=== PATIENT | female | born 1935 | race Caucasian/White ===

== ENCOUNTER 2018-07-17 14:38 | Emergency (ER) | payer OTHER ==
[~2018-07-17] VITALS: Ht 160 cm; Wt 63.5 kg
[~2018-07-17 14:38] MED LIST: B12INJ; CIPRO250 M1; EFFEXOR75 MG PO; FLOXIN OTI0.3 %/5 M1 OT; LEVOXYL75 MCG PO; LISINOPRIL10 MG PO; MAGNESIUM250 M1 PO; MIRALAX17 GM PO; NABUMETONE 500500 M2 PO; OCUVITE TABLET1 EAC1; PACERONE 200 M200 M1 PO; TRAZODONE HCL50 MG PO; VITAMIN D400 UNIT PO; ZYRTEC10 M2 PO
[2018-07-17 17:09] LABS: ABSOLUTE NEUTROPHILS 7.5 thou/uL (1.4-8.2); BASOPHILS 0.2 % (0.0-2.0); EOSINOPHILS 0.6 % (0.0-3.0); HEMATOCRIT 33.5 % (37.0-47.0); HEMOGLOBIN 11.2 gm/dL (12.0-15.0); MCH 30.1 pg (26.0-34.0); MCHC 33.3 g/dL (28.0-37.0); MCV 90.3 fL (80.0-100.0); PLATELET COUNT 375 thou/uL (150-400); POLYS 88.2 % (36.0-66.0); RBC 3.71 mil/uL (4.20-5.00); WBC 8.6 thou/uL (4.0-11.0)
[2018-07-17 17:25] LABS: CALCIUM 9.4 mg/dL (8.5-10.1); CREATININE 0.7 mg/dL (0.6-1.0); POTASSIUM 3.7 mmol/L (3.5-5.1)
[2018-07-17 18:24] LABS: URINE BILIRUBIN NEGATIVE (Negative); URINE BLOOD 1+ (Negative); URINE COLOR YELLOW; URINE GLUCOSE-RANDOM* NEGATIVE (Negative); URINE KETONES 2+ (Negative); URINE PROTEIN (DIPSTICK) NEGATIVE (Negative); URINE SPECIFIC GRAVITY 1.025 (1.005-1.035); URINE UROBILINOGEN 0.2 E.U./dl (0.2-1.0)
[2018-07-17 18:25] LABS: URINE CLARITY SL HAZY; URINE LEUKOCYTES-REFLEX 2+ (Negative); URINE NITRITE-REFLEX POSITIVE (Negative)
[2018-07-17] MEDS ORDERED: KEFLEX500 M1 PO (18:33)
[2018-07-17 18:34] LABS: BACTERIA-REFLEX >30 Many /HPF (None Seen); CASTS None Seen /LPF (None Seen); CRYSTALS None Seen /LPF (None Seen); MUCUS >6 Heavy strn/LPF (None Seen); SQUAMOUS 4-10 Moderate /LPF (0-3); URINE RBC 0-2 Rare /HPF (0-2); URINE WBC-REFLEX >25 Many /HPF (0-5)
[2018-07-17 18:35] LABS: WBC CLUMPS Few (None Seen)
[2018-07-17 19:38] VITALS: BP 136/77
== END 2018-07-17 19:38 | disposition home or self-care (01) ==
LOC: ER 14:38
PROVIDERS: Emergency Medicine
DX: S32.512A Fracture of superior rim of left pubis, initial encounter for closed fracture (principal); N39.0 Urinary tract infection, site not specified; I10 Essential (primary) hypertension; E03.9 Hypothyroidism, unspecified; I48.91 Unspecified atrial fibrillation; F32.9 Major depressive disorder, single episode, unspecified; F41.9 Anxiety disorder, unspecified; X58.XXXA Exposure to other specified factors, initial encounter; Y93.89 Activity, other specified; Y92.89 Other specified places as the place of occurrence of the external cause; Y99.8 Other external cause status

== ENCOUNTER → 2018-07-27 | Outpatient (CLI) | payer OTHER ==
[~2018-07-27] VITALS: Ht 162.6 cm; Wt 63.5 kg
[~2018-07-27] MED LIST changes: +ASPERCREME1 EACH TOP; +BETAMETHASONE V15 GM TOP; +CENTRUM SILVER1 EAC4 PO; +CITRACAL PLUS1 EAC1 PO; +EFFEXOR XR75 MG PO; -EFFEXOR75 MG PO; +FLECAINIDE ACET50 M1 PO; +IBUPROFEN 200200 M1 PO; +KEFLEX500 M1 PO; +LOSARTAN POTASS50 MG PO; +MAGNESIUM CITR100 GM PO; +MEDROL4 MG PO; +MEDROLDOSEPACK PO; +NABUMETONE 500500 M1 PO; +OMEGA 3 FISH O1 EACH PO; +PERCOCET 5-3251 EACH PO; +PRESERVISION T1 EACH PO; +TRAMADOL 50 MG50 MG PO; +TYLENOL EXTRA500 MG PO; +VITAMIN B-12500 MCG PO
--- NOTE | ~2018-07-27 | HPC ---
[facility] [address] [place] [address] PAIN MANAGEMENT CONSULTATION Name: CORNELL MYERS Room #: REG [facility] Jonn.#: [id number] Admission: 07/27/18 ������������������ Attend Phys: Lora Lopez MD Discharge: ������������������ Date of : 31 Report #: [id number] THIS REPORT FOR: //name// CC: Iban Lopez DATE OF SERVICE: 07/27/2018 CHIEF COMPLAINT: Back pain that radiates down into the legs. It has been more intense over the last month. I had years of chronic back pain. HISTORY OF PRESENT ILLNESS: The patient is an 83-year-old female who has been referred to the Pain Clinic for evaluation. The patient has noted worsening of her pain over the last few months. She rates it as a 10/10. Feels that it is crushing and that the medications that she has used in the past, have not been very effective. She is not aware of anything at this juncture that alleviates her suffering. She has been taking care of her . He was in incapacitated. As a result of him needing a walker. She would move this in and out of her car. Since she has been doing that activity and other activities to support him, she has noticed an increase in pain and discomfort in her back. She has used hydrocodone. She does not feel that the level of medication that she is receiving at that point was very helpful. She denies any significant change in her bowel or bladder function. She was not having significant problems with the hydrocodone from a narcotic standpoint. She feels that her is doing better now and that his hip is improving. He had fallen and ____ fractured his hip. The patient states that her family member is a physician. She has not had physical therapy. She has used a TENS unit. Feels that this "has been one of her best friends." Ambulation is the most problematic activity. ALLERGIES: No known drug allergies. CURRENT MEDICATIONS: Vitamin D3, vitamin D4 b.i.d., MiraLax 17 grams, levothyroxine 75 mcg, lisinopril 10 mg, vitamin A, C, E (Ocuvite tablet), Effexor 75 mg, magnesium 250 mg, amiodarone 200 mg, trazodone 50 mg. PAST MEDICAL HISTORY: Atrial fibrillation, hypertension, hypothyroidism, depression, anxiety, and chronic back pain. PAST SURGICAL HISTORY: 1. Colostomy. 2. Reversal of colostomy. 3. Bilateral knees. 4. Cholecystectomy. REVIEW OF SYSTEMS: Generally good health. [address] [address] PAIN MANAGEMENT CONSULTATION Name: CORNELL MYERS Room #: REG [facility].#: [id number] Admission: 07/27/18 ������������������ Attend Phys: Lora Lopez MD Discharge: ������������������ Date of : 33 Report #: [id number] LABORATORY DATA: CT without contrast dated 07/17/2018 revealed evaluation of the bony pelvis was performed. The iliac crests are intact. The sacral ala intact. There is a healing fracture of the left superior pubic ramus. There appears to be some developing calculus formation. The right superior pubic ramus is intact. The inferior pubic rami is intact bilaterally. The femoral heads are centered within the acetabulum. The joint spaces are maintained. The liver appears enlarged extending into the pelvis. There are changes of prior hernia repair. Two views of the lumbar spine dated 07/17/2018: 1. There is significant degeneration of the disks at L2-L3 and L3-L4 where there is a focal scoliosis. No spondylolisthesis is identified. No definite fracture is seen. IMPRESSION: Significant degenerative disk disease at L2-L3 and L3-L4 associated with focal scoliosis. No definitive fractures are seen. PAIN CLINIC ASSESSMENT/PQRS: 1. History of osteoarthritis. The patient has some arthritic changes. She has not been treated for rheumatoid arthritis. 2. Height 5 feet 4 inches, weight 140 pounds, BMI is 24.0. 3. Vital Signs: Blood pressure 151/86, pulse 76, respiratory rate 16, room air saturation 99%. 4. Pain intensity, 10/10. 5. Fall risk. The patient has not fallen in the last 3 months. 6. Blood thinner. The patient is not on a blood thinning medication. 7. Hypertension. The patient is not being treated for hypertension. 8. 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 9. Blood thinner. The patient is not on a blood thinning medication. 10. Hypertension. The patient is not being treated for hypertension. 11. Opioids greater than 6 weeks. 12. Risk assessment tool, low for opioid use. 13. Functional assessment tool, 42/70. 14. Recreational drug use. The patient denies use of recreational drugs. 15. Tobacco: The patient denies use of tobacco. 16. Alcohol: The patient denies use of alcoholic beverages. PHYSICAL EXAMINATION: GENERAL: The patient is a well-developed white female, appears her stated age. She is alert and oriented x 3. Affect is appropriate. Speech is fluent. HEENT: Normocephalic, atraumatic. Extraocular eye muscles, the patient is wearing glasses. HEART: Regular rate today. LUNGS: Clear to auscultation. ABDOMEN: Nontender. EXTREMITIES: Upper extremity muscle strength is judged to be 4/5 for the major [facility] [place] [address] [place] [address] PAIN MANAGEMENT CONSULTATION Name: CORNELL MYERS Room #: REG [facility].#: [id number] Admission: 07/27/18 ������������������ Attend Phys: Lora Lopez MD Discharge: ������������������ Date of : 33 Report #: [id number] muscle groups. The patient with history of scoliosis. Has pain and discomfort, which is radiating down into the back. IMPRESSION: 1. Clinical findings consistent with spinal stenosis and neurogenic claudication. All other items above. 2. Atrial fibrillation. 3. Hypertension. 4. Hypothyroid disease. 5. Macular degeneration. 6. Irritable bowel syndrome. 7. Generalized osteoarthritis involving multiple sites. RECOMMENDATIONS: We have discussed some options with the patient. At this juncture, I think a conservative approach would be the most beneficial. The patient feels that her pain continues to be problematic. We will try a regimen of oxycodone 5 mg 1 p.o. t.i.d. and notes the patient's efficacy. Again, we have discussed the problems with opioid medications. These probably associated with narcotics, especially in elderly people. The other option is that of an injection. At this juncture, I think to try the oxycodone 1 mg p.o. t.i.d. would be reasonable. We will also have the patient try a Medrol Dosepak at this juncture as well. She will call us in the near future. Hopefully, her pain will continue to improve as her convalescence improves. We would like to thank you for letting us participate in her care. We hope she continues to improve. ��������������������������������������������� ���������������������������������������� By: ��������������������������������������������� [id number] Lora Lopez MD /nt
[2018-07-27 09:34] VITALS: BP 151/86
--- NOTE | 2018-07-27 09:37 | NUR ---
Pain Clinic Assessment: 1. History of Osteoarthritis: History of Rheumatoid Arthritis: 2. Height: 5 ft. 4 in. 162.6 cm. Weight: 140.0 lb. oz. 63.504 kg. Patient's BMI: 24.0 3. Vital Signs: BP: 151/86 Pulse: 72 Resp: 16 Temp: 02 Sat: 99 ECG Mon: 4. Pain Intensity: 10 5. Fall Risk: Dizziness: N Needs help standing or walking: N Fallen in the last 3 months: N Fall risk comments: 6. Patient on Blood Thinner: None 7. History of Hypertension: N 8. Opioid Therapy greater than 6 weeks: Opiate Contract Signed: 9. Risk Assessment Tool Provided: LOW 10. Functional Assessment Tool: 11. Recreational Drug Use: Never Drug Type: Tobacco Use: Never Smoker Tobacco Type: Amount or Packs/day: How Many Years: Alcohol Use: No Frequency: Quant:
== END ==
LOC: PAIN 06:48
DX: M51.36 Other intervertebral disc degeneration, lumbar region (principal); M41.86 Other forms of scoliosis, lumbar region; M19.90 Unspecified osteoarthritis, unspecified site; I48.91 Unspecified atrial fibrillation; I10 Essential (primary) hypertension; E03.9 Hypothyroidism, unspecified; K58.9 Irritable bowel syndrome, unspecified; H35.30 Unspecified macular degeneration

== ENCOUNTER → 2018-08-03 | Outpatient (CLI) | payer OTHER ==
[~2018-08-03] VITALS: Ht 162.6 cm; Wt 60.5 kg
[2018-08-03 10:21] VITALS: BP 132/74
--- NOTE | 2018-08-03 10:38 | NUR ---
Pain Clinic Assessment: 1. History of Osteoarthritis: History of Rheumatoid Arthritis: 2. Height: 5 ft. 4 in. 162.6 cm. Weight: 133.4 lb. oz. 60.510 kg. Patient's BMI: 22.9 3. Vital Signs: BP: 132/74 Pulse: 78 Resp: 20 Temp: 02 Sat: 100 ECG Mon: 4. Pain Intensity: 10 5. Fall Risk: Dizziness: N Needs help standing or walking: Y Fallen in the last 3 months: N Fall risk comments: 6. Patient on Blood Thinner: None 7. History of Hypertension: N 8. Opioid Therapy greater than 6 weeks: N Opiate Contract Signed: 08/03/18 9. Risk Assessment Tool Provided: LOW 10. Functional Assessment Tool: 11. Recreational Drug Use: Never Drug Type: Tobacco Use: Never Smoker Tobacco Type: Amount or Packs/day: How Many Years: Alcohol Use: No Frequency: Quant:
--- NOTE | 2018-08-05 08:00 | HPC ---
[facility] [address] [place] [address] PAIN MANAGEMENT CONSULTATION Name: LUCIACORNELLRA WARREN Room #: REG [facility] M.R.#: [id number] Admission: 08/03/18 ������������������ Attend Phys: Funmilayo Scanlon Discharge: ������������������ Date of : 33 Report #: [id number] THIS REPORT FOR: //name// [facility] DATE OF SERVICE: 08/03/2018 CHIEF COMPLAINT: Lower back pain. HISTORY OF PRESENT ILLNESS: This is an 83-year-old female who returned to the pain clinic today thinking that she was going to get an epidural, since she tells me that her Medrol Dosepak that Dr. Lopez gave her on 07/27/2018 did not help and she tells me her pain is a 10/10. She tells me that it occasionally radiates into her legs, but today is just across her lumbar spine, axial back pain that radiates into her hips. Nothing is relieving her pain, but then later she does tell me that she has a TENS unit on that has been very beneficial as well as some Lidocaine patches that she has been taking [id number]. She also takes Tylenol and ibuprofen at home. She has taken a few of the oxycodone that Dr. Lopez did prescribe her, but feels that they are not helpful. She just would like an injection today and says it is an emergency. ALLERGIES: No known drug allergies. CURRENT LIST OF MEDICATIONS: Oxycodone 5/325 p.r.n., lidocaine patches, Tylenol Extra Strength 3 times a day, tramadol as needed, ibuprofen 400 mg 3 times a day, losartan 50 mg daily, magnesium powder daily, vitamin B12, PreserVision, fish oil, Citracal, Centrum Silver, MiraLax, vitamin D, flecainide 50 mg b.i.d., Effexor 75 mg b.i.d. and Levoxyl 88 mcg daily. PQRS: 1. She has a history of osteoarthritis and some arthritic changes in her back. She denies any rheumatoid arthritis. 2. Height is 5 feet 4 inches, weight is 133 and BMI is 22.9. 3. Vital signs 132/74, pulse is 78, respirations 20 and oxygen sat is 100. 4. Pain score is 10/10. 5. Denies dizziness. Does use a walker and has not fallen in the last 3 months. 6. The patient is not on any blood thinners and is not being treated for hypertension. 7. Opioid therapy is greater than 6 weeks. We signed an opioid signed contract today. Her risk assessment tool is low. Functional assessment is 42/70. 8. The patient does not use recreational drugs, is not a smoker and does not drink alcohol. We did check the prescription monitoring system. The patient has filled the [address] [address] PAIN MANAGEMENT CONSULTATION Name: CORNELL MYERS KELVIN Room #: REG [facility].#: [id number] Admission: 08/03/18 ������������������ Attend Phys: Funmilayo Scanlon Discharge: ������������������ Date of : 33 Report #: [id number] that Dr. Lopez just gave her last week and tramadol in the past. PHYSICAL EXAMINATION: GENERAL: The patient is a well-developed white female, 83 years old. She appears her stated age. She is alert; orientated at times, though she does confuse things quite frequently. NEUROLOGIC: Her affect is appropriate and her speech is fluent. HEENT: Normocephalic, atraumatic. Extraocular eye muscles are intact. She is wearing glasses. Her mucous membranes are moist. EXTREMITIES: Upper extremity strength judged to be 4/5 for her major muscle groups. The patient has a history of scoliosis. Lower extremity strength judged to be 4/5 in all major muscle groups. Pain is across the lumbar spine, radiating into her bilateral hips today, but not past her hips. She does walk with a slightly antalgic gait. IMPRESSION: 1. Spinal stenosis and neurogenic claudication. 2. Atrial fibrillation. 3. Macular degeneration. 4. Generalized osteoarthritis. 5. Management of high-risk medications and her terms of written opioid agreement. We reviewed the fact that opiate medications are being used to provide analgesia adequate to support activities of daily living, not attempting to achieve a specific pain score on the 0-10 Visual Analog Scale. The current opiate medications are providing sufficient analgesia to allow the patient to participate in activities of daily living. The patient is not exhibiting any aberrant behavior suggestive of drug diversion. The patient is not having any adverse reactions to medications. The patient is not suffering from daytime somnolence or mental acuity changes. The patient is managing opiate-induced constipation with appropriate [id number] agents and dietary considerations. The patient was counseled on concern for caution with operating a motor vehicle while using opiate medications. A physical exam was performed and the patient's functional status was evaluated. All patients with back pain were advised against the bed rest greater than 4 days and were advised to return to normal activities. Pain score assessment was noted and the treatment plan was reviewed with the patient. All current medications, both prescribed and OTC were reviewed and reconciled on the electronic medical record. Tobacco screening was accomplished and smoking cessation was advised when indicated. BMI was noted and diet/exercise modification was recommended for all patients following outside normal parameters. I reviewed with the patient today [facility] [place] [place] [address] PAIN MANAGEMENT CONSULTATION Name: LUCIACORNELL WARREN Room #: REG CL M.R.#: [id number] Admission: 08/03/18 ������������������ Attend Phys: Funmilayo MELANIA Scanlon Discharge: ������������������ Date of : 33 Report #: [id number] prescription medications, reviewed their responsibility to utilize medications only as prescribed by the physician. They are to seek and receive pain medications only from 1 physician group ( [facility]). They are to use 1 pharmacy and keep the clinic informed if they change pharmacies. Their responsibilities include making followup visits in a timely fashion and to avoid abrupt discontinuation of medication usage. Their responsibilities further include bringing their medications (bottles from the pharmacy with residual pills) to the visit for possible confirmation of pill counts and the patient understands it is their responsibility to submit to random drug screens to ensure both that the medications prescribed are present, and that no other controlled substances are present. All prescriptions provided today were generated electronically. PLAN: 1. We discussed treatment options with the patient today. The patient thought she was coming in for an injection today. I explained to her that her doctor is on vacation. He had given her Medrol Dosepak to try. The patient tells me that was ineffective. She just took her last dose yesterday of the "six pack", as she is calling it. I explained that some of that medicine will still be in her system. We will make an appointment for a lumbar epidural steroid injection from Dr. Mario Lopez for his return. In the meantime, we decided on the treatment plan. 2. The patient is to continue her TENS unit and her Lidoderm patches. 3. The patient is to stop her tramadol and just take her oxycodone. She is able to take this 3 times a day. I reminded her of constipation that may become problematic with taking opioids and she will take her MiraLax on a daily basis. 4. I discussed this case with Dr. John Velasquez, who was here today and we decided to give her some nabumetone, which is a stronger anti-inflammatory and to not take any further ibuprofen or Motrin. 5. We did discuss all of this in great depth with the patient and explained to her that she needs to safeguard her opioids and to take her prescriptions straight to the Pharmacy since she has misplaced her last prescription that we wrote her last week. I did call the Pharmacy and they do not have it. The patient tells me she threw away her discharge papers when she got home, so we are afraid that she did throw this prescription away. 6. Appointment made for 08/17/2018 for a lumbar epidural steroid injection by Dr. Lopez. If pain gets worse then she was instructed to go to the ER. Care today given with collaboration with Dr John Velasquez. ��������������������������������������������� <ELECTRONICALLY SIGNED> ���������������������������������������� By: Funmilayo Scanlon ��������������������������������������������� 08/05/18 [id number] Funmilayo Scanlon /nt
== END ==
LOC: PAIN 06:47
DX: M48.062 Spinal stenosis, lumbar region with neurogenic claudication (principal); I48.91 Unspecified atrial fibrillation; M19.90 Unspecified osteoarthritis, unspecified site; Z79.899 Other long term (current) drug therapy

== ENCOUNTER → 2018-08-17 | Outpatient (CLI) | payer OTHER ==
[~2018-08-17] VITALS: Ht 162.6 cm; Wt 62.1 kg
[2018-08-17 10:55] VITALS: BP 138/85
--- NOTE | 2018-08-17 11:14 | NUR ---
Pain Clinic Assessment: 1. History of Osteoarthritis: SPINE History of Rheumatoid Arthritis: DENIES 2. Height: 5 ft. 4 in. 162.6 cm. Weight: 136.8 lb. oz. 62.052 kg. Patient's BMI: 23.5 3. Vital Signs: BP: 138/85 Pulse: 78 Resp: 16 Temp: 02 Sat: 97 ECG Mon: 4. Pain Intensity: 10 5. Fall Risk: Dizziness: N Needs help standing or walking: Y Fallen in the last 3 months: N Fall risk comments: 6. Patient on Blood Thinner: None 7. History of Hypertension: N 8. Opioid Therapy greater than 6 weeks: N Opiate Contract Signed: 08/03/18 9. Risk Assessment Tool Provided: LOW 10. Functional Assessment Tool: 11. Recreational Drug Use: Never Drug Type: Tobacco Use: Never Smoker Tobacco Type: Amount or Packs/day: How Many Years: Alcohol Use: No Frequency: Quant:
== END | disposition home or self-care (01) ==
LOC: PAIN 06:53
DX: M54.16 Radiculopathy, lumbar region (principal); G89.29 Other chronic pain

== ENCOUNTER → 2018-08-31 | Outpatient (CLI) | payer OTHER ==
[~2018-08-31] VITALS: Ht 165.1 cm; Wt 60.3 kg
[2018-08-31 12:46] VITALS: BP 113/75
--- NOTE | 2018-08-31 12:51 | NUR ---
Pain Clinic Assessment: 1. History of Osteoarthritis: SPINE History of Rheumatoid Arthritis: DENIES 2. Height: 5 ft. 5 in. 165.1 cm. Weight: 133.0 lb. oz. 60.328 kg. Patient's BMI: 22.1 3. Vital Signs: BP: 113/75 Pulse: 82 Resp: 16 Temp: 02 Sat: 99 ECG Mon: 4. Pain Intensity: 8 5. Fall Risk: Dizziness: N Needs help standing or walking: N Fallen in the last 3 months: N Fall risk comments: 6. Patient on Blood Thinner: None 7. History of Hypertension: N 8. Opioid Therapy greater than 6 weeks: N Opiate Contract Signed: 08/03/18 9. Risk Assessment Tool Provided: LOW 10. Functional Assessment Tool: 11. Recreational Drug Use: Never Drug Type: Tobacco Use: Never Smoker Tobacco Type: Amount or Packs/day: How Many Years: Alcohol Use: No Frequency: Quant:
--- NOTE | 2018-09-01 10:19 | HPC ---
[facility] [place] [address] [address] PAIN MANAGEMENT CONSULTATION Name: IOANAMARIA ISABELCORNELL Room #: REG [facility] M..#: [id number] Admission: 08/31/18 ������������������ Attend Phys: Funmilayo Scanlon Discharge: ������������������ Date of : 33 Report #: [id number] THIS REPORT FOR: //name// CC: Funmilayo Rosadosmith [facility] DATE OF SERVICE: 08/31/2018 CHIEF COMPLAINT: Axial back pain and left hip pain. HISTORY OF PRESENT ILLNESS: This is an 83-year-old female who returns to the pain clinic today for refill of medications. She tells me that she does not have any further prescriptions except the one that she received on 07/27/2018. The patient had returned to a visit on 08/03/2018 because she had lost the prescription from 07/27/2018 and now, she has lost her second prescription. She brings back with her pill bottle filled on 07/27/2018 from [facility] for #30 pills. We have notified the [facility]. They do not have any further prescriptions for this patient. She is unsure where they are. The patient tells me that her epidural that she received a couple of weeks ago did not help very much. She first tells me that it did not help at all, but then, she tells me that her leg pain is better since the epidural and is requesting a second injection. She tells me that she continues to have low back pain, but that the leg is much improved. It is a constant, sharp pain. Her pain level is an 8 today because she is out of her pain pills. ALLERGIES: No known drug allergies. CURRENT LIST OF MEDICATIONS: Oxycodone 5/325, nabumetone 500 three times a day, losartan daily, betamethasone cream, magnesium, vitamin B12, PreserVision, fish oil, Tambocor, Citracal, Centrum Silver, Desyrel 50 mg at bedtime, MiraLax, vitamin D, Effexor 75 mg b.i.d. and Levoxyl 88 mcg daily. PQRS: 1. She has a history of osteoarthritis in her spine. Denies any rheumatoid arthritis. 2. Height is 5 feet 5 inches, weight is 133, BMI is 22. 3. Vital signs: Blood pressure 113/75, pulse is 82, respirations 16, oxygen sat is 99%. Pain score is 8/10. 4. Denies dizziness. She does not need help walking or standing. She has not fallen in the last 3 months. 5. The patient is not on any blood thinners and does not take medication for hypertension. 6. Opioid therapy is greater than 6 weeks; therefore, an opioid signed contract is on the chart. Risk assessment tool is low. Functional assessment is 42/70. 7. Recreational drug use, she denies. She is not a smoker [place] [address] PAIN MANAGEMENT CONSULTATION Name: CORNELL MYERS Room #: REG JANETH Chisholm#: [id number] Admission: 08/31/18 ������������������ Attend Phys: Funmilayo Scanlon Discharge: ������������������ Date of : 33 Report #: [id number] alcohol. According to the prescription monitoring system, the patient has only filled 1 prescription from us on 07/27/2018 and has not filled any further narcotics since then. We will have her sign a contract and it is placed in her chart. PHYSICAL EXAMINATION: GENERAL: This is a well-developed, well-nourished white female who appears her stated age. She is alert and orientated, though forgetful in some of her history. Her affect is appropriate and her speech is fluent. HEENT: Normocephalic, atraumatic. Extraocular eye muscles are intact. The patient wears glasses. BACK: The patient has pain and discomfort in the lumbar portion of her back, axial back pain. Her pain does radiate into her left hip and thigh occasionally. IMPRESSION: 1. Lumbar radiculopathy, history of spinal stenosis and neurogenic claudication. 2. Atrial fibrillation. 3. Generalized osteoarthritis involving multiple joints. We reviewed the fact that opiate medications are being used to provide analgesia adequate to support activities of daily living, not attempting to achieve a specific pain score on the 0-10 Visual Analog Scale. The current opiate medications are providing sufficient analgesia to allow the patient to participate in activities of daily living. The patient is not exhibiting any aberrant behavior suggestive of drug diversion. The patient is not having any adverse reactions to medications. The patient is not suffering from daytime somnolence or mental acuity changes. The patient is managing opiate-induced constipation with appropriate [id number] agents and dietary considerations. The patient was counseled on concern for caution with operating a motor vehicle while using opiate medications. A physical exam was performed and the patient's functional status was evaluated. All patients with back pain were advised against the bed rest greater than 4 days and were advised to return to normal activities. Pain score assessment was noted and the treatment plan was reviewed with the patient. All current medications, both prescribed and OTC were reviewed and reconciled on the electronic medical record. Tobacco screening was accomplished and smoking cessation was advised when indicated. BMI was noted and diet/exercise modification was recommended for all patients following outside normal parameters. I reviewed with the patient today their responsibilities to safeguard prescription medications, reviewed their responsibility to utilize medications [address] [place] [address] PAIN MANAGEMENT CONSULTATION Name: LUCIACORNELL WARREN Room #: REG [facility] M.R.#: [id number] Admission: 08/31/18 ������������������ Attend Phys: Funmilayo Scanlon Discharge: ������������������ Date of : 33 Report #: [id number] only as prescribed by the physician. They are to seek and receive pain medications only from 1 physician group ( [facility]). They are to use 1 pharmacy and keep the clinic informed if they change pharmacies. Their responsibilities include making followup visits in a timely fashion and to avoid abrupt discontinuation of medication usage. Their responsibilities further include bringing their medications (bottles from the pharmacy with residual pills) to the visit for possible confirmation of pill counts and the patient understands it is their responsibility to submit to random drug screens to ensure both that the medications prescribed are present, and that no other controlled substances are present. All prescriptions provided today were generated electronically. PLAN: 1. We discussed treatment options with the patient today. The patient tells me that she needs a refill of her Percocet. I explained to her that when we saw her on 08/03/2018, we gave her a prescription due to the one she filled before. Normally, she needs a police report for lost or stolen prescriptions. I explained the severity of losing prescriptions that have her name and her doctor's name on there that could be filled by somebody else and somebody could potentially get these medications and something could happen to them. I explained to her that she could not lose any further prescriptions; therefore, it was decided today along with Dr. Mario Lopez who was discussed with. We will walk the patient to the pharmacy here in the hospital to fill her prescription, so she can take the medication home. The patient verbalizes understanding. 2. I encouraged the patient to take 2 tablets a day to see if this is beneficial in helping some of her pain. She verbalizes understanding. 3. The patient would like to have another epidural, at least try to see if this will be beneficial in relieving some of her pain. She feels that at first, the injection was not as beneficial as it could have been, but then realizes that her leg is better since the injection, but she would not give me a percentage of relief. Appointment made at the end of August, so it will be 1 month from her previous injection. 4. The patient denies any problems with constipation or overmedication. If the patient does take 2 Percocet pills a day as we are prescribing, her morphine milligram equivalent will be 15 per the CDC guidelines. Prescription given for Percocet #60 today. No additional prescription given. 5. Care provided with collaboration of Dr Lopez who did see the patient as well today. ��������������������������������������������� <ELECTRONICALLY SIGNED> ���������������������������������������� By: Funmilayo Scanlon ��������������������������������������������� 09/01/18 1019 1445 [id number] Funmilayo Scanlon /nt
== END ==
LOC: PAIN 07:04
DX: M54.16 Radiculopathy, lumbar region (principal); M19.90 Unspecified osteoarthritis, unspecified site; I48.91 Unspecified atrial fibrillation; I73.9 Peripheral vascular disease, unspecified; Z87.39 Personal history of other diseases of the musculoskeletal system and connective tissue

== ENCOUNTER → 2018-09-21 | Outpatient (CLI) | payer OTHER ==
[~2018-09-21] VITALS: Ht 165.1 cm; Wt 63.0 kg
[~2018-09-21] MED LIST changes: +PERCOCET PO
[2018-09-21 10:31] VITALS: BP 126/79
--- NOTE | 2018-09-21 10:37 | NUR ---
Pain Clinic Assessment: 1. History of Osteoarthritis: SPINE History of Rheumatoid Arthritis: DENIES 2. Height: 5 ft. 5 in. 165.1 cm. Weight: 139.0 lb. oz. 63.050 kg. Patient's BMI: 23.1 3. Vital Signs: BP: 126/79 Pulse: 74 Resp: 18 Temp: 02 Sat: 96 ECG Mon: 4. Pain Intensity: 6 5. Fall Risk: Dizziness: N Needs help standing or walking: Y Fallen in the last 3 months: N Fall risk comments: USES WALKER 6. Patient on Blood Thinner: None 7. History of Hypertension: N 8. Opioid Therapy greater than 6 weeks: N Opiate Contract Signed: 08/03/18 9. Risk Assessment Tool Provided: LOW 10. Functional Assessment Tool: 11. Recreational Drug Use: Never Drug Type: Tobacco Use: Never Smoker Tobacco Type: Amount or Packs/day: How Many Years: Alcohol Use: No Frequency: Quant:
--- NOTE | 2018-09-28 17:05 | HPC ---
[facility] [address] [place] [place] [address] PAIN MANAGEMENT CONSULTATION Name: CORNELL MYERS Room #: REG JANETH Silva.#: [id number] Admission: 09/21/18 ������������������ Attend Phys: Lora Lopez MD Discharge: ������������������ Date of : 33 Report #: [id number] THIS REPORT FOR: //name// CC: Nikko Lopez DATE OF SERVICE: 09/21/2018 CHIEF COMPLAINT: Low back and left hip pain. Pain radiates down to the left leg. HISTORY: The patient is an 83-year-old female who has been seen in the pain clinic because of lumbar radiculopathy. She has undergone an epidural steroid injection and gleaned some benefit from this. She returns today with the hopes of undergoing another epidural steroid injection. Her pain continues to be problematic and she rates it as a 6/10. Has pain that is radiating down into the lower portion of her back involving the left hip. Pain has been constant and problematic since she began taking care of her . Her fell, walking into a store on the rug. He then fractured his hip. He required use of a wheelchair. She continued to move the wheelchair and his walker from place to place and in and out of the car. Since that time, she has noticed an increase pain and discomfort. She does have some scoliosis in the upper portion of her back. Feels that this is the nidus of her pain event. ALLERGIES: No known drug allergies. CURRENT MEDICATIONS: Vitamin D3, vitamin D4 b.i.d., MiraLax 17 grams, levothyroxine 75 mcg, lisinopril 10 mg, vitamin A, vitamin C, vitamin E, Effexor 75 mg, magnesium 250 mg, amiodarone 200 mg, trazodone 50 mg. PAIN CLINIC ASSESSMENT/PQRS: 1. The patient has a history of osteoarthritis. She is not being treated for rheumatoid arthritis. 2. Height 5 feet 5 inches, weight 139 pounds, BMI is 23.1. 3. Vital signs: Blood pressure 126/79, pulse 74, respiratory rate 18, room air saturation 96%. 4. Pain intensity 08/01. 5. Fall history: The patient uses a walker to ambulate. She has not fallen in the last 3 months. 6. Blood thinner. The patient is not on a blood thinning medication. 7. Opioid therapy greater than 6 weeks. The patient is not on a chronic opioid regimen, but has received opioid through the pain clinic. 8. Risk assessment tool, low for opioid use. 9. Functional assessment tool 42/70. 10. Recreational drugs. The patient [place] [address] PAIN MANAGEMENT CONSULTATION Name: CORNELL MYERS Room #: REG CL Phan#: [id number] Admission: 09/21/18 ������������������ Attend Phys: Lora Lopez MD Discharge: ������������������ Date of : 33 Report #: [id number] 11. Tobacco: The patient has never smoked. 12. Alcohol: The patient denies use of alcoholic beverages. PHYSICAL EXAMINATION: GENERAL: The patient is a well-developed, well-nourished white female. Appears her stated age. She is alert and oriented x 3. Her affect is appropriate. Speech is fluent. HEENT: Normocephalic, atraumatic. Extraocular eye muscles intact. The patient is wearing glasses. HEART: Regular rate today. LUNGS: Clear to auscultation. ABDOMEN: Nontender. MUSCULOSKELETAL: The patient has pain in the back with some discomfort in the lower portion of her back. The patient has continued to use a corset for back support. Has some scoliotic curvature in the upper portion of her back. Has pain that is radiating down into her leg with numbness, tingling, and sensory changes in the L4-L5 area. IMPRESSION: 1. Lumbar radiculopathy with history of spinal stenosis and neurogenic claudication. 2. Atrial fibrillation. 3. Hypertension. 4. Hypothyroidism. 5. Macular degeneration. 6. Irritable bowel syndrome. 7. Generalized osteoarthritis involving multiple sites. RECOMMENDATIONS: We discussed treatment options with the patient. Risks and benefits of an epidural steroid injection were again discussed. Possible complications of the procedure, which could include but are not limited to infection, worsening pain, no improvement in pain, nerve damage, and the patient elects to proceed. PROCEDURE NOTE: The patient was taken to the procedure area. She was then assisted in getting on the examination table. Fluoroscopy using anterior, posterior as well as lateral viewing were implemented. A pillow was placed under the abdomen to bolster and improve positioning. Her back was sterilely prepped with a Betadine solution. A 0.25% bupivacaine was infiltrated at the L4-L5 interspace using a 25-gauge needle. This area was numbed. A 17-gauge Tuohy with loss of resistance technique was then used to gain access to the epidural space, aspiration was negative. A total of 80 mg Depo-Medrol, 40 mg triamcinolone, and 2 mL of 0.25% bupivacaine was injected. The patient tolerated the procedure well. There were no complications. She remained in the Pain Clinic for appropriate amount of time. She will follow up in the future as needed. We would like to thank you for letting us participate in her care. We [facility] [place] [address] [place] [address] PAIN MANAGEMENT CONSULTATION Name: IOANAMARIA ISABELCORNELLRA WARREN Room #: REG [facility] JonnR.#: [id number] Admission: 09/21/18 ������������������ Attend Phys: Lora Lopez MD Discharge: ������������������ Date of : 33 Report #: [id number] hope she continues to improve. The patient's pain decreased to 5 at the time of discharge. A total of 13 seconds of fluoro time was used. ��������������������������������������������� <ELECTRONICALLY SIGNED> ���������������������������������������� By: Lora Lopez MD ��������������������������������������������� 09/28/18 1705 1633 05 Lora Lopez MD /PMT
== END | disposition home or self-care (01) ==
LOC: PAIN 06:49
DX: M54.16 Radiculopathy, lumbar region (principal); G89.29 Other chronic pain; I10 Essential (primary) hypertension; E03.9 Hypothyroidism, unspecified; I48.91 Unspecified atrial fibrillation; M19.90 Unspecified osteoarthritis, unspecified site; Z79.899 Other long term (current) drug therapy; Z79.01 Long term (current) use of anticoagulants; Z87.440 Personal history of urinary (tract) infections

== ENCOUNTER → 2018-10-05 | Outpatient (CLI) | payer OTHER ==
[~2018-10-05] VITALS: Ht 165.1 cm; Wt 61.6 kg
[~2018-10-05] MED LIST changes: +MOBIC7.5 MG PO
--- NOTE | ~2018-10-05 | HPC ---
[facility] [address] [place] [address] PAIN MANAGEMENT CONSULTATION Name: CORNELL MYERS Room #: REG JANETH Phan#: [id number] Admission: 10/05/18 Attend Phys: Lora Lopez MD Discharge: Date of : 33 Report #: [id number] THIS REPORT FOR: //name// CC: Iban Lopez DATE OF SERVICE: 10/05/2018 CHIEF COMPLAINT: Here for medication renewal. HISTORY: The patient is an 83-year-old female, who has been seen in the pain clinic because of lumbar radiculopathy. Epidural steroid injections have been performed. The patient returns today indicating that her pain continues to be problematic. She rates it as a 6/10. She notes that there is pain that is radiating down in her low back and involving her left hip. She has been taking care of her , who fell on a rug. He fractured his hip. Moving him around as well as doing activities of daily living have exacerbated her pain and discomfort. She does have a history of scoliosis. She does use a back brace, but does not feel that this has been providing significant benefit. She has a little pain. She is limited in her ability to go out and interactive because of her pain. She is unable to interact with her friends to go to dinner, play bridge, and feels that pain continues to limit her activity. CURRENT MEDICATIONS: Vitamin D3, vitamin D4 b.i.d., MiraLax 17 grams, levothyroxine 70 mcg, lisinopril 10 mg, vitamin A, vitamin C, vitamin E, Effexor 75 mg, magnesium 250 mg, amiodarone 200 mg, and trazodone 50 mg. ALLERGIES: No known drug allergies. PAIN CLINIC ASSESSMENT AND PQRS: 1. The patient has a history of osteoarthritis. She is not being treated for rheumatoid arthritis. 2. Pain intensity /10. 3. Fall history. The patient is using a walker. 4. Blood thinner. The patient is not on a blood thinning medication. 5. Hypertension. The patient is not being treated for hypertension. 6. Opioids greater than 6 weeks. The patient receives her medication from her primary. 7. Risk assessment tool, low for opioid use. 8. Functional assessment tool, . 9. Recreational drug use. The patient denies use of recreational drugs. 10. Tobacco: The patient has never smoked. 11. Alcohol. The patient denies use of alcoholic beverages. PHYSICAL EXAMINATION: GENERAL: The patient is a well-developed, well-[place] [address] PAIN MANAGEMENT CONSULTATION Name: CORNELL MYERS [id number] Admission: 10/05/18 Attend Phys: Lora Lopez MD Discharge: Date of : 33 Report #: [id number] appears her stated age. She is alert and oriented x 3. Her affect is appropriate. Speech is fluent. Height is 5 feet 5 inches, weight is 135 pounds, and BMI is 22.6. VITAL SIGNS: Blood pressure is 122/73, pulse is 80, respiratory rate is 20, and room air saturation is 100%. HEENT: Normocephalic, atraumatic. Extraocular eye muscles intact. Sclerae nonicteric. Mucous membranes are moist. The patient is wearing glasses. HEART: Regular rate today. LUNGS: Clear to auscultation. ABDOMEN: Nontender. MUSCULOSKELETAL: The patient has pain in the back. She has some discomfort in lower portion of her back. The patient has a corset on for support. She has a scoliotic curve in the upper portion of her back, has experienced pain radiating down into the leg area with numbness and tingling and sensory changes at L4-L5. IMPRESSION: 1. History of lumbar radiculopathy and history of spinal stenosis and neurogenic claudication. 2. Atrial fibrillation. 3. Hypertension. 4. Hypothyroidism. 5. Macular degeneration. 6. Irritable bowel syndrome. 7. Generalized osteoarthritis involving multiple sites. RECOMMENDATIONS: We have discussed treatment options with the patient. At this juncture, I think she would benefit from evaluation for a back brace. We would have her wear the back brace with hopes of reducing the pain by restricting the mobility in her trunk. The patient may benefit from use of tramadol and possibly low dose opioid medications in the future. We would like to thank you for letting us to participate in her care. We hope she continues to improve. By: [id number] Lora Lopez MD /CHARLETTE
[2018-10-05 09:45] VITALS: BP 122/73
--- NOTE | 2018-10-05 10:09 | NUR ---
Pain Clinic Assessment: 1. History of Osteoarthritis: SPINE History of Rheumatoid Arthritis: DENIES 2. Height: 5 ft. 5 in. 165.1 cm. Weight: 135.8 lb. oz. 61.598 kg. Patient's BMI: 22.6 3. Vital Signs: BP: 122/73 Pulse: 80 Resp: 20 Temp: 02 Sat: 100 ECG Mon: 4. Pain Intensity: 6 5. Fall Risk: Dizziness: N Needs help standing or walking: Y Fallen in the last 3 months: N Fall risk comments: USES WALKER 6. Patient on Blood Thinner: None 7. History of Hypertension: N 8. Opioid Therapy greater than 6 weeks: N Opiate Contract Signed: 08/03/18 9. Risk Assessment Tool Provided: LOW 10. Functional Assessment Tool: 44 11. Recreational Drug Use: Never Drug Type: Tobacco Use: Never Smoker Tobacco Type: Amount or Packs/day: How Many Years: Alcohol Use: No Frequency: Quant:
== END ==
LOC: PAIN 06:53
DX: M54.16 Radiculopathy, lumbar region (principal); M48.062 Spinal stenosis, lumbar region with neurogenic claudication; I48.91 Unspecified atrial fibrillation; I10 Essential (primary) hypertension; E03.9 Hypothyroidism, unspecified; M19.90 Unspecified osteoarthritis, unspecified site; H35.30 Unspecified macular degeneration; K58.9 Irritable bowel syndrome, unspecified; Z79.899 Other long term (current) drug therapy; Z88.8 Allergy status to other drugs, medicaments and biological substances

== ENCOUNTER → 2018-10-28 | Outpatient (CLI) | payer OTHER ==
[~2018-10-28] VITALS: Ht 160 cm; Wt 62.1 kg
[~2018-10-28] MED LIST changes: +OXYCODONE-APAP1 EAC6 PO; +TUMS PO
[2018-10-28 11:23] VITALS: BP 129/76
--- NOTE | 2018-10-28 11:29 | NUR ---
Pain Clinic Assessment: 1. History of Osteoarthritis: SPINE History of Rheumatoid Arthritis: DENIES 2. Height: 5 ft. 3 in. 160.0 cm. Weight: 137.0 lb. oz. 62.143 kg. Patient's BMI: 24.3 3. Vital Signs: BP: 129/76 Pulse: 82 Resp: 16 Temp: 02 Sat: 95 ECG Mon: 4. Pain Intensity: 10 5. Fall Risk: Dizziness: N Needs help standing or walking: N Fallen in the last 3 months: N Fall risk comments: USES WALKER 6. Patient on Blood Thinner: None 7. History of Hypertension: N 8. Opioid Therapy greater than 6 weeks: N Opiate Contract Signed: 08/03/18 9. Risk Assessment Tool Provided: LOW 10. Functional Assessment Tool: 44 11. Recreational Drug Use: Never Drug Type: Tobacco Use: Never Smoker Tobacco Type: Amount or Packs/day: How Many Years: Alcohol Use: No Frequency: Quant:
== END ==
LOC: PAIN 06:51
DX: S32.592A Other specified fracture of left pubis, initial encounter for closed fracture (principal); X58.XXXA Exposure to other specified factors, initial encounter; Y93.89 Activity, other specified; Y92.89 Other specified places as the place of occurrence of the external cause; Y99.8 Other external cause status

== ENCOUNTER → 2018-11-04 | Outpatient (CLI) | payer OTHER ==
[~2018-11-04] VITALS: Ht 160 cm; Wt 62.5 kg
--- NOTE | ~2018-11-04 | HPC ---
[facility] [place] [address] PAIN MANAGEMENT CONSULTATION Name: CORNELL MYERS Room #: REG JANETH Silva.#: [id number] Admission: 11/04/18 ������������������ Attend Phys: Lora Lopez MD Discharge: ������������������ Date of : 33 Report #: [id number] THIS REPORT FOR: //name// CC: Iban Lopez DATE OF SERVICE: 11/04/2018 PRIMARY CARE PHYSICIAN: Nikko Gutierrez MD CHIEF COMPLAINT: Left hip pain. HISTORY OF PRESENT ILLNESS: The patient is an 83-year-old female who has been seen in the pain clinic because of lumbar radiculopathy. She has undergone epidural steroid injections and continues to have pain, which is problematic. She wears a corset brace. States that she saw the folks at the brace clinic. They feel that they do not have any significantly innovative brace is better than what she has. She states that they would increase the support of the brace that she is using. She continues to have some pain and discomfort involving her left leg. Notes that pain is in the left hip. Rates it as a 10/10 with certain activities. Has some pain in the buttocks as well as some pain in the groin area. Has some pain in the area [id number] on the left side. The patient describes the pain as horrible. Use of Mcclure helped the pain slightly. She is having some difficulty with gait and walking. States that her balance is somewhat problematic. She is walking using a rolling walker. ALLERGIES: No known drug allergies. CURRENT MEDICATIONS: Vitamin D3, vitamin D4 b.i.d., MiraLax 17 grams, levothyroxine 70 mcg, lisinopril 10 mg, vitamin A, vitamin C, vitamin E, Effexor 75 mg, magnesium 250 mg, amiodarone 200 mg and trazodone 50 mg. PAIN CLINIC ASSESSMENT AND PQRS: 1. The patient has a history of arthritic changes in her back. She is not being treated for rheumatoid arthritis. 2. Height 5 feet 3 inches, weight 137 pounds, BMI is 24.4. 3. Vital signs: Blood pressure 138/94, pulse 73, respiratory rate 18, room air saturation 100%. 4. Pain intensity 12/01. 5. Fall history: The patient has not fallen. She is using a walker. 6. Blood thinner. The patient is not on a blood thinning medication. 7. Hypertension. The patient is not being treated for hypertension. 8. Opioids greater than 6 weeks. The patient is not on a chronic opioid regimen. 9. Risk assessment tool, low for opioid use. 10. Functional assessment tool 70. [address] [address] PAIN MANAGEMENT CONSULTATION Name: CORNELL MYERS Room #: REG [facility] Phan#: [id number] Admission: 11/04/18 ������������������ Attend Phys: Lora Lopez MD Discharge: ������������������ Date of : 33 Report #: [id number] 11. Recreational drug use. The patient has never used recreational drugs. Denies use of tobacco. 12. Alcohol. The patient denies use of alcoholic beverages. PHYSICAL EXAMINATION: GENERAL: The patient is a well-developed, well-nourished, pleasant white female. Appears her stated age. She is alert and oriented x 3. Her affect is appropriate. Speech is fluent. HEENT: Normocephalic, atraumatic. Extraocular eye muscles intact. Sclerae nonicteric. Mucous membranes are moist. The patient is wearing glasses. NECK: Without adenopathy. HEART: Regular rate. LUNGS: Generally clear. ABDOMEN: Nontender. MUSCULOSKELETAL: Upper extremity muscle strength judged to be 5-/5 for the major muscle groups in the upper back. The patient has a corset with support for her back on and in place. Has a scoliotic curve in the upper portion of her back. Has pain in the lower portion of her back that radiates down into her leg with some numbness and tingling in the L4 distribution. The patient has some pain and discomfort in the left hip. Internal and external rotation of her leg causes some increased discomfort in the hip joint. IMPRESSION: 1. Left hip pain. 2. History of spinal stenosis with neurogenic claudication. 3. Atrial fibrillation. 4. Hypertension. 5. Hypothyroidism. 6. Macular degeneration. 7. Irritable bowel syndrome. 8. Generalized osteoarthritis involving multiple sites. LABORATORY DATA: X-ray of the left hip AP dated 10/28/2018. IMPRESSION: Mildly displaced vertical oriented fracture involving the mid aspect of the left inferior pubic ramus. Nondisplaced fracture suggested involving the lateral aspect of the left superior pubic ramus near the acetabulum. The hip joint is maintained. RECOMMENDATIONS: The patient is having pain and discomfort in her left hip. We will proceed with a left hip injection. Risks and benefits of the procedure were discussed and explained. The patient has undergone epidural steroid injection. She continues to have pain, which is problematic in the low back area. She has a history of spinal stenosis. Continues to walk using her rolling walker for support. Continues to wear a corset to support her back. We will have the patient evaluated by [facility]. A call to the [facility] [address] [place] [address] PAIN MANAGEMENT CONSULTATION Name: CORNELL MYERS Room #: REG [facility]#: [id number] Admission: 11/04/18 ������������������ Attend Phys: Lora Lopez MD Discharge: ������������������ Date of : 33 Report #: [id number] Group was made. The equal opportunity representative stated that they would have them give us a call. PROCEDURE NOTE: The patient was taken to the procedure area. She was then assisted in getting on the examination table. Her anterior left hip area was sterilely prepped with a chlorhexidine solution and allowed to dry. A second cleaning using another chlorhexidine solution was performed. A third cleansing of this area using Betadine was performed. Fluoroscopy anterior, posterior was used to identify the left hip area. This area was then anesthetized with 1% lidocaine solution. A 20-gauge spinal needle was then advanced into the area of the left hip. Aspiration was negative. Iodine injection indicated appropriate spread of solution. A total of 2 mL of contrast medium was used. A total of 40 mg Depo-Medrol was injected into this area. This was followed by 4 mL of 0.5% bupivacaine. The patient's pain decreased to 0 at the time of discharge. A total of 29 seconds fluoroscopy time was used. RECOMMENDATION: Again, we will have the patient see the [facility] Service at [facility] for evaluation for further attention to the ramus fracture. We would like to thank you for letting us participate in her care. We hope she continues to improve. ��������������������������������������������� ���������������������������������������� By: ��������������������������������������������� [id number] MD FREDERICK Vila
[2018-11-04 10:29] VITALS: BP 138/94
--- NOTE | 2018-11-04 10:36 | NUR ---
Pain Clinic Assessment: 1. History of Osteoarthritis: SPINE History of Rheumatoid Arthritis: DENIES 2. Height: 5 ft. 3 in. 160.0 cm. Weight: 137.8 lb. oz. 62.506 kg. Patient's BMI: 24.4 3. Vital Signs: BP: 138/94 Pulse: 73 Resp: 18 Temp: 02 Sat: 100 ECG Mon: 4. Pain Intensity: 10 5. Fall Risk: Dizziness: N Needs help standing or walking: N Fallen in the last 3 months: N Fall risk comments: USES WALKER 6. Patient on Blood Thinner: None 7. History of Hypertension: N 8. Opioid Therapy greater than 6 weeks: N Opiate Contract Signed: 08/03/18 9. Risk Assessment Tool Provided: LOW 10. Functional Assessment Tool: 44 11. Recreational Drug Use: Never Drug Type: Tobacco Use: Never Smoker Tobacco Type: Amount or Packs/day: How Many Years: Alcohol Use: No Frequency: Quant:
== END | disposition home or self-care (01) ==
LOC: PAIN 06:46
DX: S32.592A Other specified fracture of left pubis, initial encounter for closed fracture (principal); S32.512A Fracture of superior rim of left pubis, initial encounter for closed fracture; I10 Essential (primary) hypertension; M19.90 Unspecified osteoarthritis, unspecified site; E03.9 Hypothyroidism, unspecified; I48.91 Unspecified atrial fibrillation; Z79.01 Long term (current) use of anticoagulants; Z79.899 Other long term (current) drug therapy; Z98.890 Other specified postprocedural states; X58.XXXA Exposure to other specified factors, initial encounter; Y93.89 Activity, other specified; Y92.89 Other specified places as the place of occurrence of the external cause; Y99.8 Other external cause status

== ENCOUNTER → 2018-11-30 | Outpatient (CLI) | payer OTHER ==
[~2018-11-30] VITALS: Ht 160 cm; Wt 63.5 kg
[~2018-11-30] MED LIST changes: +MELOXICAM15 MG PO; +MELOXICAM7.5 MG PO; +NEURONTIN100 MG PO; +OXYCODONE-APAP1 TAB PO
[2018-11-30 09:32] VITALS: BP 136/86
--- NOTE | 2018-11-30 09:55 | NUR ---
Pain Clinic Assessment: 1. History of Osteoarthritis: SPINE History of Rheumatoid Arthritis: DENIES 2. Height: 5 ft. 3 in. 160.0 cm. Weight: 140.0 lb. oz. 63.504 kg. Patient's BMI: 24.8 3. Vital Signs: BP: 136/86 Pulse: 75 Resp: 16 Temp: 02 Sat: 100 ECG Mon: 4. Pain Intensity: 10 5. Fall Risk: Dizziness: N Needs help standing or walking: Y Fallen in the last 3 months: N Fall risk comments: USES WALKER 6. Patient on Blood Thinner: None 7. History of Hypertension: N 8. Opioid Therapy greater than 6 weeks: N Opiate Contract Signed: 08/03/18 9. Risk Assessment Tool Provided: LOW 10. Functional Assessment Tool: 44 11. Recreational Drug Use: Never Drug Type: Tobacco Use: Never Smoker Tobacco Type: Amount or Packs/day: How Many Years: Alcohol Use: No Frequency: Quant:
--- NOTE | 2018-12-23 14:21 | HPC ---
[facility] [address] [place] [address] PAIN MANAGEMENT CONSULTATION Name: CORNELL MYERS Room #: REG JANETH Nick.#: [id number] Admission: 11/30/18 Attend Phys: Lora Lopez MD Discharge: Date of : 33 Report #: [id number] THIS REPORT FOR: //name// CC: Iban Lopez DATE OF SERVICE: 11/30/2018 CHIEF COMPLAINT: Back and leg pain. HISTORY: The patient is an 83-year-old female. She has pain and discomfort in the lower portion of her back. She has problems with scoliosis. She does wear a corset. She is having pain, which continues to be problematic and radiates down into her lower back and left buttocks and left leg. She describes it as chronic pain. Rates it as a 10/10 today. It is constant, sharp and aching. Pain is exacerbated by sitting and standing. Notes that with repositioning the pain can improves somewhat. She has undergone epidural steroid injections in the past and felt that was somewhat helpful. She has been noted to have not mildly nondisplaced fracture in the left inferior pubic ramus. She would like to undergo 4an epidural steroid injection to note its efficacy today. ALLERGIES: No known drug allergies. CURRENT MEDICATIONS: Vitamin D3, vitamin D4 b.i.d., MiraLax 17 grams, levothyroxine 70 mcg, lisinopril 10 mg, vitamin A, vitamin C, vitamin E, Effexor 75 mg, magnesium 250 mg, amiodarone 200 mg and trazodone 50 mg. PAIN CLINIC ASSESSMENT AND PQRS: 1. The patient has a history of osteoarthritic changes in her back. She is not being treated for rheumatoid arthritis. 2. Height 5 feet 3 inches, weight 140 pounds, BMI is 24.8. 3. Vital Signs: Blood pressure 136/86, pulse 75, respiratory rate 16, room air saturations 100%. 4. Pain intensity 10/10. 5. Fall risk. The patient has not fallen in the last 3 months. 6. The patient is using a walker. 7. Blood thinner. The patient is not on a blood thinning medication. 8. Hypertension. PLAN: 1. The patient is being treated for hypertension. 2. Opioids greater than 6 weeks. 3. Risk assessment tool, low for opioid use. 4. Functional assessment tool, 70. 5. Recreational drug use: The patient denies. 6. Tobacco: The patient denies. [facility] [address] [place] [address] PAIN MANAGEMENT CONSULTATION Name: CORNELL MYERS Room #: REG [facility]#: [id number] Admission: 11/30/18 Attend Phys: Lora Lopez MD Discharge: Date of : 33 Report #: [id number] 7. Alcohol. The patient denies frequent use of alcoholic beverages. PHYSICAL EXAMINATION: GENERAL: The patient is a well-developed, well-nourished white female. Appears her stated age. She is alert and oriented x 3. Her affect is appropriate. Speech is fluent. HEENT: Normocephalic, atraumatic. Extraocular eye muscles intact. Sclerae nonicteric. Mucous membranes are moist. NECK: Without adenopathy or JVD. HEART: Regular rate. LUNGS: Generally clear. ABDOMEN: Nontender. MUSCULOSKELETAL: The patient's muscle strength in the lower extremity, judged to be 4+/5 for the major muscle groups in the lower extremity. The patient has a corset on for support of her back. She has scoliotic curvature in the upper portion of her back. In the lower portion of her back. She has pain that radiates down into her leg left with numbness and tingling in the L4 dermatomal distribution. The patient also has some left hip pain. Internal and external rotation of her hip causes some increased pain in the past has improved somewhat after the left hip injection. IMPRESSION: 1. Left hip pain/leg pain/radicular pain. 2. History of spinal stenosis with neurogenic claudication. 3. Atrial fibrillation. 4. Hypertension. 5. Hypothyroidism. 6. Macular degeneration. 7. Irritable bowel syndrome. 8. Generalized osteoarthritis in multiple sites. 9. Mildly displaced vertical oriented fracture involving the mid aspect of the left inferior pubic ramus. Nondisplaced fracture suggested involving the lateral aspect of the left superior pubic ramus near the acetabulum. RECOMMENDATIONS: We discussed treatment options with the patient. Risks and benefits of an epidural injection were discussed. Possible complications of the procedure, which could include, but not limited to infection, increased muscle soreness, headache, bleeding, worsening of pain, nerve to damage were discussed and the patient elects to proceed. PROCEDURE NOTE: The patient was taken to the procedure area. She was then assisted in getting on examination table. A pillow was placed under her abdomen to bolster and improve positioning. Fluoroscopy using anterior, posterior as well as lateral viewing were implemented. The L4-L5 interspace was sterilely prepped with a Betadine solution. A 25-gauge needle was then used to infiltrate the L4-L5 interspace. A 17-gauge Tuohy with loss of resistance technique was [address] [address] PAIN MANAGEMENT CONSULTATION Name: CORNELL MYERS Room #: REG JANETH Chisholm#: [id number] Admission: 11/30/18 Attend Phys: Lora Lopez MD Discharge: Date of : 33 Report #: [id number] used to gain access to the epidural space. There was no CSF, heme or paresthesia. A total of 80 mg Depo-Medrol, 40 mg triamcinolone and 2 mL of 0.25% bupivacaine was injected. A total of about 20 seconds fluoroscopy time was used. The patient's pain score decreased to 0 at the time of discharge. She will follow up in the future as needed. I has discussed risk and benifits of a back brace. Wearing the brace could have benifits by reducing the pain by restricting the mobility in her trunk. We would like to thank you for letting us participate in her care. We hope she continues to improve. <ELECTRONICALLY SIGNED> By: Lora Lopez MD 12/23/18 1421 [id number] Lora Lopez MD /[facility]
== END | disposition home or self-care (01) ==
LOC: PAIN 06:58
DX: M54.5 Low back pain (principal); G89.29 Other chronic pain; M54.16 Radiculopathy, lumbar region; M25.552 Pain in left hip; I10 Essential (primary) hypertension; E78.5 Hyperlipidemia, unspecified; E03.9 Hypothyroidism, unspecified; M19.90 Unspecified osteoarthritis, unspecified site; Z98.890 Other specified postprocedural states; Z79.01 Long term (current) use of anticoagulants; Z79.899 Other long term (current) drug therapy

== ENCOUNTER → 2019-01-06 | Outpatient (CLI) | payer OTHER ==
[~2019-01-06] VITALS: Ht 160 cm; Wt 62.1 kg
[2019-01-06 09:36] VITALS: BP 125/77
--- NOTE | 2019-01-06 09:55 | NUR ---
Pain Clinic Assessment: 1. History of Osteoarthritis: SPINE History of Rheumatoid Arthritis: DENIES 2. Height: 5 ft. 3 in. 160.0 cm. Weight: 137.0 lb. oz. 62.143 kg. Patient's BMI: 24.3 3. Vital Signs: BP: 125/77 Pulse: 83 Resp: 14 Temp: 02 Sat: 97 ECG Mon: 4. Pain Intensity: 6-7 5. Fall Risk: Dizziness: N Needs help standing or walking: Y Fallen in the last 3 months: N Fall risk comments: USES WALKER 6. Patient on Blood Thinner: None 7. History of Hypertension: N 8. Opioid Therapy greater than 6 weeks: N Opiate Contract Signed: 08/03/18 9. Risk Assessment Tool Provided: LOW 10. Functional Assessment Tool: 44 11. Recreational Drug Use: Never Drug Type: Tobacco Use: Never Smoker Tobacco Type: Amount or Packs/day: How Many Years: Alcohol Use: No Frequency: Quant:
--- NOTE | 2019-01-31 21:49 | HPC ---
[facility] [address] [place] [address] PAIN MANAGEMENT CONSULTATION Name: CORNELL MYERS Room #: REG JANETH JeronimoNickMadelin.#: [id number] Admission: 01/06/19 Attend Phys: Lora Lopez MD Discharge: Date of : 33 Report #: [id number] THIS REPORT FOR: //name// CC: Iban Lopez DATE OF SERVICE: 01/06/2019 CHIEF COMPLAINT: Low back pain. The leg pain is improved. HISTORY: The patient is an 83-year-old female who has been followed in the Pain Clinic. As you recall, she suffers from scoliosis. Her was injured. After his injury, she provided primary care for him. After lifting his wheelchair and items in and out of the car, she noticed a worsening of pain and discomfort. She developed pain in her back. Has had pain down into her left leg and buttocks. She has undergone epidural steroid injections with some benefit. She has a history of scoliosis. She has been given the opportunity to try a brace to help stabilize her spine. She also has had a nondisplaced fracture in her left inferior pubic ramus. This pain has improved. She has returned today indicating that her pain is in the low back area. She is having left leg pain. That portion has improved since her last injection. Rates her pain as a 6-7/10. Pain is exacerbated when she sits. Standing can be problematic. Pain worsens as the day goes on. Notes that her pain improves when she repositions herself. Feels that her medication is providing some benefit. She has returned today for renewal of her medications. ALLERGIES: No known drug allergies. CURRENT MEDICATIONS: Vitamin D3, vitamin D4 b.i.d., MiraLax 17 grams, levothyroxine, lisinopril 10 mg, vitamin A, vitamin C, vitamin E, Effexor 75 mg, magnesium 250 mg, amiodarone 200 mg, and trazodone 50 mg. PAIN CLINIC ASSESSMENT/PQRS: 1. The patient has some osteoarthritic changes in her back. She is not being treated for rheumatoid arthritis. 2. Height 5 feet 3 inches, weight 137 pounds, BMI is 24.3. 3. Vital signs: Blood pressure 125/77, pulse 83, respiratory rate 14, room air saturation 97%. 4. Pain intensity, 6-7/10. 5. Fall history: The patient has not fallen since we saw her. She is using a walker. 6. Blood thinner. The patient is not on a blood thinning medication. 7. Hypertension. The patient is not being treated for hypertension. 8. Opioids greater than 6 weeks. The patient takes medication as prescribed. 9. Risk assessment tool, low for opioid use. 10. Functional assessment tool, 44/70. [address] [address] PAIN MANAGEMENT CONSULTATION Name: CORNELL MYERS Room #: REG [facility]#: [id number] Admission: 01/06/19 Attend Phys: Lora Lopez MD Discharge: Date of : 33 Report #: [id number] 11. Recreational drug use: The patient denies. 12. Tobacco: The patient has never smoked. 13. Alcohol. The patient denies frequent use of alcoholic beverages. PHYSICAL EXAMINATION: GENERAL: The patient is a well-developed, well-nourished white female. Appears her stated age. She is alert and oriented x 3. Her affect is appropriate. Speech is fluent. HEENT: Normocephalic, atraumatic. Extraocular eye muscles intact. Sclerae nonicteric. Mucous membranes are moist. NECK: Without adenopathy or JVD. HEART: Regular rate. ABDOMEN: Nontender. MUSCULOSKELETAL: The patient has muscle strength in the lower extremities, judged to be 4+/5 for the major muscle groups in the lower extremity. The patient walks with the use of a walker. Has a corset on her back. Has scoliosis with curvature in the upper portion of her back. Has some pain in the back area. She has noticed an improvement in the pain, which was radiating down into her legs. IMPRESSION: 1. Left hip pain has improved. 2. History of spinal stenosis and neurogenic claudication. 3. Atrial fibrillation. 4. Hypertension. 5. Hypothyroidism. 6. Macular degeneration. 7. Irritable bowel syndrome. 8. Generalized osteoarthritis in multiple sites. 9. Left inferior ramus fracture. RECOMMENDATIONS: We discussed treatment options with the patient. At this juncture, we will continue with her medication using gabapentin 100 mg p.o. b.i.d. She will also continue with meloxicam. She will decrease the amount of this. She will take 7.5 mg every other day. Should she note some problems with her stomach, she will stop this medication. The patient will also continue with Percocet 7.5 mg 1 p.o. t.i.d. She will call us if she has any concerns. The patient is aware that opioid medications can be problematic in certain patients. She does not show any signs of addiction. She overall feels that things are going reasonably well. Her is doing better at this juncture. We would like to thank you for letting us participate in her care. <ELECTRONICALLY SIGNED> By: Lora Lopez MD 01/31/19 2149 [id number] Lora Lopez MD /mari
== END ==
LOC: PAIN 06:46
DX: S32.592A Other specified fracture of left pubis, initial encounter for closed fracture (principal); M25.552 Pain in left hip; I48.91 Unspecified atrial fibrillation; I10 Essential (primary) hypertension; E03.9 Hypothyroidism, unspecified; K58.9 Irritable bowel syndrome, unspecified; M15.9 Polyosteoarthritis, unspecified; H35.30 Unspecified macular degeneration; Z87.39 Personal history of other diseases of the musculoskeletal system and connective tissue; Z79.899 Other long term (current) drug therapy; X58.XXXA Exposure to other specified factors, initial encounter; Y93.89 Activity, other specified; Y92.89 Other specified places as the place of occurrence of the external cause; Y99.8 Other external cause status

== ENCOUNTER → 2019-02-17 | Outpatient (CLI) | payer OTHER ==
[~2019-02-17] VITALS: Ht 160 cm; Wt 64.0 kg
[~2019-02-17] MED LIST changes: +OXYCODONE-ACET1 EAC2 PO
[2019-02-17 12:36] VITALS: BP 145/91
--- NOTE | 2019-02-17 12:42 | NUR ---
Pain Clinic Assessment: 1. History of Osteoarthritis: SPINE History of Rheumatoid Arthritis: DENIES 2. Height: 5 ft. 3 in. 160.0 cm. Weight: 141.0 lb. oz. 63.957 kg. Patient's BMI: 25.0 3. Vital Signs: BP: 145/91 Pulse: 80 Resp: 14 Temp: 02 Sat: 95 ECG Mon: 4. Pain Intensity: 8 5. Fall Risk: Dizziness: N Needs help standing or walking: Y Fallen in the last 3 months: N Fall risk comments: USES WALKER 6. Patient on Blood Thinner: None 7. History of Hypertension: N 8. Opioid Therapy greater than 6 weeks: N Opiate Contract Signed: 08/03/18 9. Risk Assessment Tool Provided: LOW 10. Functional Assessment Tool: 44 11. Recreational Drug Use: Never Drug Type: Tobacco Use: Never Smoker Tobacco Type: Amount or Packs/day: How Many Years: Alcohol Use: No Frequency: Quant:
--- NOTE | 2019-02-21 14:24 | HPC ---
[facility] [place] [address] PAIN MANAGEMENT CONSULTATION Name: CORNELL MYERS Room #: REG JANETH JonnNick#: [id number] Admission: 02/17/19 Attend Phys: Lora Lopez MD Discharge: Date of : 33 Report #: [id number] THIS REPORT FOR: //name// CC: Iban Lopez DATE OF SERVICE: 02/17/2019 CHIEF COMPLAINT: "I am still having back pain and I would like to have another injection in the low back area that was helpful." HISTORY: The patient is an 83-year-old female who has been followed in the pain clinic. As you recall, she suffers from chronic back pain. This happened after her was injured. As a result of his injury, he needed a wheelchair. She moves his wheelchair in and out of the car as needed. She also was his primary caregiver. She did note some pain and discomfort in her back. Does have a history of a nondisplaced fracture in her left inferior pubic ramus. She feels that this area has improved somewhat, but still has pain in the low back area. As you may recall, she suffers from spinal scoliosis. Because of the scoliosis, she notes that she has some back pain. She has used a brace in the past. She has been trying to continue with activities. She feels that an epidural steroid injection would be helpful. She is taking her medications and finds that the pain medications are helpful as well. ALLERGIES: No known drug allergies. CURRENT MEDICATIONS: Vitamin D3, vitamin D4 b.i.d., MiraLax 17 grams, levothyroxine, lisinopril 10 mg, vitamin A, vitamin C, vitamin E, Effexor, magnesium 250 mg, amiodarone 200 mg, trazodone 50 mg at bedtime, gabapentin 100 mg t.i.d., meloxicam 7.5 mg, oxycodone 10/325. PAIN CLINIC ASSESSMENT AND PQRS: 1. Osteoarthritis. The patient has osteoarthritic changes secondary to scoliosis in her low back area. She is not being treated for rheumatoid arthritis. 2. Height 5 feet 2 inches, weight 140 pounds, BMI is 25. 3. Vital signs: Blood pressure 145/91, pulse 80, respiratory rate 14, room air saturation 95%. 4. Pain intensity 10/01. 5. Fall history: The patient walks using a walker. 6. Blood thinner. The patient is not on a blood thinning medication. 7. Hypertension. The patient is not being treated for hypertension. 8. Opioids greater than 6 weeks. The patient received medication from one source, pain clinic. 9. Risk assessment tool, low for opioid use. 10. Functional assessment tool 44/70[place] [address] PAIN MANAGEMENT CONSULTATION Name: CORNELL MYERS KELVIN Room #: REG CLI Carlos#: [id number] Admission: 02/17/19 Attend Phys: Lora Lopez MD Discharge: Date of : 33 Report #: [id number] 11. Recreational drug use: The patient denies. 12. Tobacco: The patient has never smoked. 13. Alcohol. The patient denies frequent use of alcoholic beverages. PHYSICAL EXAMINATION: GENERAL: The patient is a well-developed white female, appears her stated age. She is alert and oriented x 3. Her affect is appropriate. HEENT: Normocephalic, atraumatic. Extraocular eye muscles intact. Sclerae nonicteric. Mucous membranes are moist. The patient is wearing glasses. NECK: Without adenopathy or JVD. HEART: Regular. ABDOMEN: Nontender. MUSCULOSKELETAL: The patient has significant amount of scoliosis in her back. Complains of pain and discomfort on the left and right side. Notes increased pain and discomfort when she is walking. Has a back brace in place. Does appear to be standing at a more erect posture. Seems to be getting support from the back brace. Still has pain that radiates down into her legs. IMPRESSION: 1. Left hip pain, which is improved. 2. History of spinal stenosis and neurogenic claudication. 3. Atrial fibrillation. 4. Hypertension. 5. Hypothyroidism. 6. Macular degeneration. 7. Irritable bowel syndrome. 8. Generalized osteoarthritis in multiple sites. 9. Left inferior ramus fracture, stable. RECOMMENDATIONS: We discussed treatment options with the patient. At this juncture, we will continue with her medications. We explained to her that opioid medications can be helpful. They can become less effective as time goes on, secondary to development of tolerance. We will have the patient continue with the gabapentin medication. She is not having any problems with thinking and this medication has not impaired her activities of daily living. She will continue with the oxycodone 10 mg one p.o. 4-6 hours. A total of 100 tablets have been provided. The patient will also continue with the Neurontin medication as she is able to tolerate it. She will continue with Meloxicam 7.5 mg. She is aware that this medication is an aspirin type medication and can cause some GI problems. Should she note any problems or concerns about GI problems, she will stop taking that medication. The patient has gleaned greater than 50% improvement after epidural steroid injection in the past. They were last done at the L4-L5 dermatomal distribution. She is having pain and discomfort that radiates down into the L4-L5 dermatomal distribution and will return in the near future for an epidural steroid injection to help quell her pain. [facility] [address] [place] [address] PAIN MANAGEMENT CONSULTATION Name: LUCIACORNELL KELVIN Room #: REG [facility].#: [id number] Admission: 02/17/19 Attend Phys: Lora Lopez MD Discharge: Date of : 33 Report #: [id number] We would like to thank you for letting us participate in her care. We hope she continues to improve. <ELECTRONICALLY SIGNED> By: Lora Lopez MD 02/21/19 1424 [id number] 1700 Lora Lopez MD /nt
== END ==
LOC: PAIN 06:48
DX: M48.061 Spinal stenosis, lumbar region without neurogenic claudication (principal); I48.91 Unspecified atrial fibrillation; I10 Essential (primary) hypertension; E03.9 Hypothyroidism, unspecified; M19.90 Unspecified osteoarthritis, unspecified site

== ENCOUNTER → 2019-03-08 | Outpatient (CLI) | payer OTHER ==
[~2019-03-08] VITALS: Ht 160 cm; Wt 60.7 kg
[2019-03-08 09:12] VITALS: BP 116/77
--- NOTE | 2019-03-08 09:35 | NUR ---
Pain Clinic Assessment: 1. History of Osteoarthritis: SPINE History of Rheumatoid Arthritis: DENIES 2. Height: 5 ft. 3 in. 160.0 cm. Weight: 133.8 lb. oz. 60.691 kg. Patient's BMI: 23.7 3. Vital Signs: BP: 116/77 Pulse: 74 Resp: 14 Temp: 02 Sat: 96 ECG Mon: 4. Pain Intensity: 8 5. Fall Risk: Dizziness: N Needs help standing or walking: Y Fallen in the last 3 months: N Fall risk comments: USES WALKER 6. Patient on Blood Thinner: None 7. History of Hypertension: N 8. Opioid Therapy greater than 6 weeks: N Opiate Contract Signed: 08/03/18 9. Risk Assessment Tool Provided: LOW 10. Functional Assessment Tool: 44 11. Recreational Drug Use: Never Drug Type: Tobacco Use: Never Smoker Tobacco Type: Amount or Packs/day: How Many Years: Alcohol Use: No Frequency: Quant:
== END | disposition home or self-care (01) ==
LOC: PAIN 03-07 08:16
DX: M54.16 Radiculopathy, lumbar region (principal); G89.29 Other chronic pain; Z98.890 Other specified postprocedural states; Z79.899 Other long term (current) drug therapy

== ENCOUNTER → 2019-03-31 | Outpatient (CLI) | payer OTHER ==
[~2019-03-31] VITALS: Ht 160 cm; Wt 60.2 kg
[2019-03-31 09:21] VITALS: BP 115/78
--- NOTE | 2019-03-31 09:40 | NUR ---
Pain Clinic Assessment: 1. History of Osteoarthritis: SPINE KNEES History of Rheumatoid Arthritis: DENIES 2. Height: 5 ft. 3 in. 160.0 cm. Weight: 132.8 lb. oz. 60.238 kg. Patient's BMI: 23.5 3. Vital Signs: BP: 115/78 Pulse: 80 Resp: 16 Temp: 02 Sat: 96 ECG Mon: 4. Pain Intensity: 8 5. Fall Risk: Dizziness: N Needs help standing or walking: Y Fallen in the last 3 months: N Fall risk comments: USES WALKER 6. Patient on Blood Thinner: None 7. History of Hypertension: N 8. Opioid Therapy greater than 6 weeks: N Opiate Contract Signed: 08/03/18 9. Risk Assessment Tool Provided: LOW 10. Functional Assessment Tool: 44 11. Recreational Drug Use: Never Drug Type: Tobacco Use: Never Smoker Tobacco Type: Amount or Packs/day: How Many Years: Alcohol Use: No Frequency: Quant:
--- NOTE | 2019-04-19 09:02 | HPC ---
[facility] [address] [place] [address] PAIN MANAGEMENT CONSULTATION Name: CORNELL MYERS Room #: REG JANETH Silva.#: [id number] Admission: 03/31/19 Attend Phys: Lora Lopez MD Discharge: Date of : 33 Report #: [id number] THIS REPORT FOR: cc: Iban Gutierrez MD,Iban Lopez,Lora Springer MD ~ CC: Iban Lopez DATE OF SERVICE: 03/31/2019 CHIEF COMPLAINT: Back pain continues. Medication is helpful. HISTORY: The patient is an 84-year-old female who has been followed in the Pain Clinic. As you recall, she has chronic back pain. Suffers from spinal stenosis. She has had problems since helping her . He fell. 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 Since that time, she has suffered from pain and discomfort in her low back area. She does wear a corset to help with back support. She returns today indicating that her pain continues to be problematic. Rates it as an 8/10. Pain is worse with sitting, standing and walking. Notes that repositioning, using her medications and lying down, can be beneficial. She has returned today for renewal of her medication. ALLERGIES: No known drug allergies. CURRENT MEDICATIONS: Vitamin D3, vitamin D4 b.i.d., MiraLax 17 grams, levothyroxine, lisinopril 10 mg, vitamin A, vitamin C, vitamin E, Effexor, magnesium 250 mg, amiodarone 200 mg, trazodone 50 mg at bedtime, gabapentin 100 mg t.i.d., meloxicam 75 mg, and oxycodone 10/325. PAIN CLINIC ASSESSMENT/PQRS: 1. The patient has some osteoarthritic changes in her back secondary to scoliosis in her low back. She is not being treated for rheumatoid arthritis. 2. Height 5 feet 3 inches, weight 132 pounds, BMI is 23. 3. Vital signs: Blood pressure 115/78, pulse 80, respiratory rate 16, and room air saturation 96%. 4. Pain intensity, 10/01. 5. Fall risk. The patient has not fallen in the last 3 months. She is using a walker. 6. Blood thinner. The patient is not on a blood thinning medication. 7. Hypertension. The patient is not being treated for hypertension. 8. Opioids greater than 6 weeks. The patient receives medication from one source the Pain Clinic. 9. Risk assessment tool, low for opioid use. 10. Functional assessment tool, 44/70. [address] [address] PAIN MANAGEMENT CONSULTATION Name: LUCIACORNELLRA WARREN Room #: REG [facility].#: [id number] Admission: 03/31/19 Attend Phys: Lora Lopez MD Discharge: Date of : 33 Report #: [id number] 11. Recreational drug use: The patient denies. 12. Tobacco: The patient has never smoked. 13. Alcohol. The patient denies frequent use of alcoholic beverages. PHYSICAL EXAMINATION: GENERAL: The patient is a well-developed, well-nourished white female. Appears her stated age of 84. She is alert and oriented x 3. Her affect is appropriate. Speech is fluent. HEENT: Normocephalic, atraumatic. Extraocular eye muscles intact. Sclerae nonicteric. The patient is wearing glasses. NECK: Without adenopathy or JVD. HEART: Regular rate. ABDOMEN: Nontender. MUSCULOSKELETAL: The patient with significant amount of scoliosis in the upper back area. Has pain on her left side. Walks with her walker. Has a brace in place. Notes that sitting erect can cause some increased pain and discomfort. The patient has some pain that radiates down into her legs. IMPRESSION: 1. Left hip pain. 2. History of spinal stenosis with neurogenic claudication. 3. Atrial fibrillation. 4. Hypertension. 5. Hypothyroidism. 6. Macular degeneration. 7. Irritable bowel syndrome. 8. 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 9. Left inferior ramus fracture -- stable. RECOMMENDATIONS: We discussed treatment options with the patient. At this juncture, we will continue with her medications. She feels that the medications are helpful. She continues to stay as active as possible. She continues to have pain, which is still problematic. She would like to continue with her medications. She is still trying to use the back brace effectively. A script for her medications has been reissued. The patient will continue with meloxicam 7.5 mg daily. She will continue to monitor her GI tract. Should she note some problems with her GI tract, she will stop using the meloxicam. She will also continue with the oxycodone. She finds that this medication continues to be helpful. She will continue with gabapentin. She will call us if she has any concerns. [facility] [address] [place] [address] PAIN MANAGEMENT CONSULTATION Name: CORNELL MYERS Room #: REG CL Shira.#: [id number] Admission: 03/31/19 Attend Phys: Lora Lopez MD Discharge: Date of : 33 Report #: [id number] We would like to thank you for letting us participate in her care. We hope she continues to improve. <ELECTRONICALLY SIGNED> By: Lora Lopez MD 04/19/19 0902 [id number] 0338 Lora Lopez MD /nt
== END ==
LOC: PAIN 06:52
DX: S32.592A Other specified fracture of left pubis, initial encounter for closed fracture (principal); M25.552 Pain in left hip; M54.5 Low back pain; I48.91 Unspecified atrial fibrillation; I10 Essential (primary) hypertension; E03.9 Hypothyroidism, unspecified; K58.9 Irritable bowel syndrome, unspecified; M15.9 Polyosteoarthritis, unspecified; Z79.899 Other long term (current) drug therapy; X58.XXXA Exposure to other specified factors, initial encounter; Y93.89 Activity, other specified; Y92.89 Other specified places as the place of occurrence of the external cause; Y99.8 Other external cause status; Z87.39 Personal history of other diseases of the musculoskeletal system and connective tissue

== ENCOUNTER → 2019-05-10 | Outpatient (CLI) | payer OTHER ==
[~2019-05-10] VITALS: Ht 160 cm; Wt 59.8 kg
[~2019-05-10] MED LIST changes: +PERCOCET 10-321 EAC1 PO; +VITAMIN D3250 MCG PO
[2019-05-10 09:00] VITALS: BP 121/74
--- NOTE | 2019-05-10 09:11 | NUR ---
Pain Clinic Assessment: 1. History of Osteoarthritis: SPINE KNEES History of Rheumatoid Arthritis: DENIES 2. Height: 5 ft. 3 in. 160.0 cm. Weight: 131.8 lb. oz. 59.784 kg. Patient's BMI: 23.4 3. Vital Signs: BP: 121/74 Pulse: 80 Resp: 16 Temp: 02 Sat: 98 ECG Mon: 4. Pain Intensity: 8 5. Fall Risk: Dizziness: N Needs help standing or walking: Y Fallen in the last 3 months: N Fall risk comments: USES WALKER 6. Patient on Blood Thinner: None 7. History of Hypertension: N 8. Opioid Therapy greater than 6 weeks: Y Opiate Contract Signed: 08/03/18 9. Risk Assessment Tool Provided: LOW 10. Functional Assessment Tool: 44 11. Recreational Drug Use: Never Drug Type: Tobacco Use: Never Smoker Tobacco Type: Amount or Packs/day: How Many Years: Alcohol Use: No Frequency: Quant:
--- NOTE | 2019-05-19 08:21 | HPC ---
[facility] [address] [address] PAIN MANAGEMENT CONSULTATION Name: CORNELL MYERS Room #: REG [facility].#: [id number] Admission: 05/10/19 Attend Phys: Lora Lopez MD Discharge: Date of : 33 Report #: [id number] THIS REPORT FOR: cc: Iban Gutierrez MD,Iban Lopez,Lora Springer MD ~ CC: Iban Lopez DATE OF SERVICE: 05/10/2019 CHIEF COMPLAINT: Low back pain, which is constant. HISTORY: The patient is an 84-year-old female who has been followed in the pain clinic. You might recall, she has chronic back pain. She suffers from spinal stenosis. She has had pain and discomfort since her 's fall. After the fall, she was his primary caregiver. She does have a history of scoliosis and back problems. After lifting and moving items for him during his illness, she noticed worsening of pain and discomfort in her back. She continues to have pain, which continues to be problematic. Notes that the pain can be quite problematic. She rates it as an 8/10. She is walking with a walker. Initially before his problem, she was able to walk upright without the walker. Notes that the pain is worse in the evening. It sometimes fluctuates. She notes that her medication is helpful. Lying down is helpful. Unfortunately, she feels that the patient's pain never goes away. She finds that her medications are helpful and continues to take her medications as prescribed. Her son who is a speech therapy assistant, recently was released from the hospital, he had some life threatening problems. He seems to be doing better at this juncture, she feels better since he has improved. ALLERGIES: No known drug allergies. CURRENT MEDICATIONS: Vitamin D3, vitamin D4 b.i.d., MiraLax 17 grams, levothyroxine, lisinopril 10 mg, vitamin A, vitamin C, vitamin E, Effexor, magnesium 250 mg, amiodarone 200 mg, trazodone 50 mg, gabapentin 100 mg t.i.d., meloxicam, 7.5 mg. The patient breaks a 15 mg tablet, and oxycodone 10/325. PAIN CLINIC ASSESSMENT AND PQRS: 1. The patient has some osteoarthritic changes in her back. It is secondary to scoliosis in her low back area. She is not being treated for rheumatoid arthritis. 2. Height 5 feet 3 inches, weight 131 pounds, BMI is 23.4. 3. Vital signs: Blood pressure 121/74, pulse 80, respiratory rate 16, room air saturation 98%. 4. Pain intensity 8/10. 5. Fall history: The patient has not fallen and [place] [address] PAIN MANAGEMENT CONSULTATION Name: CORNELL MYERS Room #: REG [facility].#: [id number] Admission: 05/10/19 Attend Phys: Lora Lopez MD Discharge: Date of : 33 Report #: [id number] 6. Blood thinner. The patient is not on a blood thinning medication. 7. Hypertension. The patient is not being treated for hypertension. 8. Opioids greater than 6 weeks. The patient received medication from one source, the pain clinic. 9. Risk assessment tool, low for opioid use. 10. Functional assessment tool, 44/. 11. Recreational drugs: The patient denies. 12. Tobacco: The patient has never smoked. 13. Alcohol. The patient denies frequent use of alcoholic beverages. PHYSICAL EXAMINATION: GENERAL: The patient is a well-developed, well-nourished 84-year-old female, appears her stated age. She is alert and oriented x 3. Her affect is appropriate. Speech is fluent. HEENT: Normocephalic, atraumatic. Extraocular eye muscles intact. The patient is wearing glasses. NECK: Without adenopathy or JVD. HEART: Regular. ABDOMEN: Nontender. MUSCULOSKELETAL: The patient with scoliosis in the upper portion of her back. Has pain in the left side. Walks with her walker. Has a brace that she wears on occasion. Notes that sitting erect can increase pain and discomfort. Notes some pain sometimes radiates down into her legs. IMPRESSION: 1. Left hip pain. 2. History of spinal stenosis with neural claudication. 3. Atrial fibrillation. 4. Hypertension. 5. Hypothyroidism. 6. Macular degeneration. 7. Irritable bowel syndrome. 8. 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 9. Left inferior ramus fracture -- stable. RECOMMENDATIONS: We discussed treatment options with the patient. At this juncture, we will continue with her medications. She rates her pain today as an 8/10. She wishes that she could get more pain relief. She is aware that given her spinal stenosis and scoliosis, total resolution of her pain is very unlikely. The patient continues to wear a brace to help with her support of her back. She walks with a walker at this juncture. She states that she has been using gabapentin more episodic than on a regular basis. We explained that use of gabapentin 100 mg p.o. t.i.d., might provide more benefit than taking it episodically. She will do that. Percocet, she will continue with her Percocet 10 mg one p.o. q.4-6 hours, total of 100 tablets. The patient has used meloxicam. She will take one-half pill, which is 7.5 mg 1 p.o. as on occasion [facility] [address] [place] [address] PAIN MANAGEMENT CONSULTATION Name: IOANAMARIA ISABELCORNELL Room #: REG [facility]#: [id number] Admission: 05/10/19 Attend Phys: Lora Lopez MD Discharge: Date of : 33 Report #: [id number] to help with the pain, if she notes any GI discomfort at all, she will stop taking that medication. We have discussed the risks and benefits of gastric bleeding as a result of nonsteroidal anti-inflammatory medications. We would like to thank you for letting us participate in her care. We hope she continues to improve. <ELECTRONICALLY SIGNED> By: Lora Lopez MD 05/19/19 0821 1724 2300 Lora Lopez MD /nt
== END ==
LOC: PAIN 06:39
DX: M54.5 Low back pain (principal); M25.559 Pain in unspecified hip; I10 Essential (primary) hypertension; E03.9 Hypothyroidism, unspecified; I48.91 Unspecified atrial fibrillation; H35.30 Unspecified macular degeneration; K58.9 Irritable bowel syndrome, unspecified

== ENCOUNTER → 2019-05-17 | Outpatient (CLI) | payer OTHER ==
[2019-05-17 09:20] LABS: CREATININE 0.8 mg/dL (0.6-1.0)
== END ==
LOC: MRI 08:35
PROVIDERS: Surgery
DX: C50.912 Malignant neoplasm of unspecified site of left female breast (principal)

== ENCOUNTER 2019-05-22 10:14 | Day surgery (SDC) | payer OTHER ==
[~2019-05-22] VITALS: Ht 154.9 cm; Wt 62.6 kg
--- NOTE | ~2019-05-22 | O ---
[facility] [place] [address] [place] [address] OPERATIVE REPORT Name: CORNELL MYERS Room #: 446-P [facility] M.R.#: [id number] Admission: 05/22/19 Attend Phys: Benjy Hussein MD Discharge: Date of : 33 Report #: [id number] THIS REPORT FOR: cc: Iban Gutierrez MD, Christopher B. MD Chu, Peter Y. MD ~ CC: Nikko Hussein DATE OF SERVICE: 05/22/2019 PREOPERATIVE DIAGNOSIS: Left breast invasive lobular carcinoma palpable at 12:30-1 o'clock position. POSTOPERATIVE DIAGNOSIS: Left breast invasive lobular carcinoma palpable at 12:30-1 o'clock position. PROCEDURES PERFORMED: Left mastectomy with sentinel node biopsy. SURGEON: Benjy Hussein MD ANESTHESIA: General anesthesia. COMPLICATIONS: None. ESTIMATED BLOOD LOSS: 30 mL. PROCEDURE NOTE: With the patient under general anesthesia, the Neoprobe was used to identify the lymph node preop prior to the skin prep. This axilla node was found with activity with a count of 90. The left breast was then prepped and draped in sterile fashion. Timeout was performed. The patient did receive preoperative IV antibiotics. An ellipse of skin flap was drawn prior to the prep. This removed the skin overlapping the palpable mass. Excision was carried through the skin. Cautery was used to obtain hemostasis. Superior skin flap was then made. The patient actually had a very pretty identifiable superficial fascial layer. Skin thickness is felt and noted to be good thickness. Dissection was carried over the superficial fascia. This was carried cephalad toward the breast. The inferior skin flap was then made in the identical manner. The breast was then taken off the chest wall. A pretty large sized perforating vessel was found in the pretty consistent in location in the upper rib intercostal space. This was clipped and then also sutured with a 3-0 Vicryl suture. The breast was then taken off the chest wall without difficulty. Breast was then dissected laterally and removed. Short stitch was placed superiorly, a long stitch was placed laterally for orientation. The site of the tumor was also marked. The skin over the tumor was marked with a marking pen. [address] [address] OPERATIVE REPORT Name: CORNELL MYERS Room #: 446-P [facility].#: [id number] Admission: 05/22/19 Attend Phys: Benjy Hussein MD Discharge: Date of : 33 Report #: [id number] Specimen was oriented for the pathologist. The sentinel node was found. A Neoprobe was placed in the same area that I detected before the prep was easily found. There is a small section of fat that was coming from the breast towards the axilla. This was removed. The axilla was opened up and the lymph node was found, about a cm sized pink brownish lymph node. This was soft, mobile. This node was harvested with the surrounding fat tissue. The node was excised from the rest of the fat. The lymph node had 1100 counts over 10 seconds. The rest of the fat tissue did not have any activity. The node was sent as sentinel node. The rest of the fat will be analyzed permanent section. The bed count was zero. Irrigation was performed. Lymph node specimen was given to pathology. The lymph node on frozen section did not show any macrometastasis. The #19 Spencer drain was brought out inferolaterally. This was then brought up along the lateral chest wall to the axilla and then placed under the superior flap and the medial corner of the lower flap. The drain was sutured with 2-0 silk suture. Subcutaneous tissue was closed with 3-0 PDS running fashion. Skin was closed with 4-0 PDS running subcuticular fashion. Dermabond was applied. Fluffy 4 x 4 was placed over the incision and drain dressing was applied. OpSite was applied. The patient was awakened and taken to recovery and tolerated the procedure well. By: [id number] Benjy Hussein MD /mari
[2019-05-22 10:43] VITALS: BP 159/97
[2019-05-22] MEDS ORDERED: CALCIUM500 MG PO (11:34)
[2019-05-22 11:49] LABS: HEMATOCRIT 33.6 % (37.0-47.0); HEMOGLOBIN 11.1 gm/dL (12.0-15.0)
[2019-05-22 16:42] VITALS: BP 165/105
--- NOTE | 2019-05-22 18:30 | NUR ---
PT RECEIVED FROM [facility] AT 1615 ALERT AND IN NO PAIN. ASSESSMENT COMPLETED. PT DENIED ANY SURGICAL OR CHRONIC BACK PAIN. ENC TO USE I/S AT BEDSIDE. VOIDED W/ BEDPAN. TAKING FLUIDS WELL. DENIES NAUSEA. DSNG D&I. CONSTANTINE BARR W/ SS DRAINAGE. PT STATES GOING HOME TOMORROW.
[2019-05-22 19:48] VITALS: BP 126/84
--- NOTE | 2019-05-23 04:00 | NUR ---
PT ALERT AND ORIENTED. UP WITH ASSIST X 1 TO THE BATHROOM. VOIDING OKAY. GIVEN MORPHINE IVP FOR LEFT BREAST PAIN. PT ALSO NEEDED SOME ORAL PAIN MEDS. EATING WITH NO NAUSEA.AFEBRILE. CONSTANTINE WITH SMALL AMOUNTS OF SEROSANGUINOUS OUTPUT. DRSG TO L BREAST IS C/D/I.
[2019-05-23 08:03] VITALS: BP 122/78
--- NOTE | 2019-05-23 11:45 | NUR ---
Assumed care of pt at 0700. Pt a&ox4. J.P. drain in place. Dressing c/d/i. Pain meds administered per pt request. called this am and requested home health and case management consult. Case worked contacted. IVF infusing. Possible D/C later today. Call light within reach. Will continue to monitor.
--- NOTE | 2019-05-23 12:28 | NUR ---
FAXED REFERRAL TO [facility] SPOKE WITH SAGAR IN INTAKE SHE RECEIVED REFERRAL BUT PT WILL HAVE COPAY. FAXED REFERRAL TO [facility] SPOKE WITH MARJ IN INTAKE SHE RECEIVED REFERRAL AND WILL REVIEW PT TO DC TODAY.
[2019-05-23 12:39] VITALS: BP 122/78
[2019-05-23 13:01] VITALS: BP 122/78
--- NOTE | 2019-05-23 14:18 | NUR ---
PT ADMITTED RELATED TO LT BREAST MASTECTOMY W/SENTINEL NODE BIOPSY. CM REVIEWED CHART AND SPOKE WITH CARE TEAM. CM CALLED AND SPOKE WITH PT OVER THE PHONE THIS DAY. PT SEEMED TO BE A&O X4. CM ROLE INTRODUCED. PT INDICATED SHE RESIDES IN A HOUSE WITH HER SPOUSE WITH 2 STEPS TO ENTER AND A FULL FLIGHT INSIDE. 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 PT INDICATED SHE HAD HH A LONG TIME AGO FOLLOWING SURGERY. PT WAS RECEPTIVE TO HH [place] AND INDICATED NO PARTICULAR PREFERENCE FOR PROVIDERS REFERRAL SENT TO [facility] THEY ARE OUT OF NETWORK [facility] CAN ACCEPT. PT TO HAVE [facility] FOR DRAIN AND WOUND CARE. CARE TEAM INDICATED PT IS MEDICALLY STABLE TO [place] HOME THIS DAY. NO OTHER CM INTERVENTION INDICATED. CASE CLOSED.
[2019-05-23 14:39] VITALS: BP 122/78
--- NOTE | 2019-05-23 15:33 | NUR ---
PT DISCHARGING TODAY TO HOME WITH [facility] FAXED DC ORDERS/SUMMARY RECEIVED CONFIRMATION AND THEY WILL NOTIFY PT TIME OF VISITS.
--- NOTE | 2019-05-26 14:07 | PATH ---
[facility] [place] [address] PATHOLOGY RPT PROCEDURE Name: FATOUMATA WILLETT Room #: DEP [facility] M.R.#: [id number] Admission: 05/22/19 Date of : 31 Discharge: 05/23/19 Report #: [id number] Path Case #: [id number] [facility] Accession Number: [id number] . 01 Material submitted: . PART A: lymph node - LEFT AXILLARY SENTINEL LYMPH NODE,FS. Modifiers: left, axillary tail PART B: breast - LEFT BREAST SHORT STITCH SUPERIOR LONG STITCH LATERAL. Modifiers: left PART C: axillary tail of breast - EXTRA LEFT AXILLARY TISSUE. Modifiers: left, axillary tail . 01 Clinical history: . Left breast cancer . 02 Frozen section diagnosis: . FROZEN SECTION DIAGNOSIS: (by Dr. Angela Cintron) . TPA1 and FSA1, Left axillary sentinel lymph node, biopsy: - No definite macro metastatic carcinoma identified on FSA1 or TPA1 slides. . These findings are discussed with Dr. Benjy Hussein in OR1 at [facility] and a written report is place in the chart. (IUV:pit 05/22/2019) . FROZEN SECTION GROSS DESCRIPTION: A. Specimen is received fresh from the OR labeled with the patient's name, and "left axillary sentinel lymph node", consists of an oval yellow fatty fragment of tissue measuring approximately 1.2 x 1.0 x 0.8 cm. The specimen is bisected to show a white-lyles lymph node. Touch preparation is made labeled TPA1, the entire specimen is submitted for frozen section as FSA1, this is subsequently submitted for permanent sections as A1. (IUV:pit 05/22/2019) . Frozen section and Touch Preparation performed at [facility], [address] [place] [address] , [place] [address]. IZV/QTP . 03 Diagnosis: A. Lymph node (1) "left axillary sentinel lymph node": - Reactive changes negative for malignancy by histology and immunohistochemistry. - The immunoperoxidase stain AE1/AE3 is negative. . B. 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 SEE COMMENT. - Co-reviewed by Dr. Angela Cintron. . C. Fibroadipose tissue "extra left axillary tissue": - Benign fragment of fibroadipose tissue without any evidence of malignancy. . . SURGICAL PATHOLOGY CANCER CASE SUMMARY Protocol posting date: March 2019 . INVASIVE CARCINOMA OF THE BREAST: Resection Procedure ___ Total mastectomy (including nipple-sparing and skin-sparing mastectomy) Specimen Laterality ___ Left + Tumor Site + ___ Not specified Tumor Size ___ Greatest dimension of largest invasive focus >1 mm: 25 mm + Additional dimensions: 20 mm x 13 mm Histologic Type ___ Invasive carcinoma of no special type (ductal) Glandular (Acinar)/Tubular Differentiation ___ Score 3 (<10% of tumor area forming glandular/tubular structures) Nuclear Pleomorphism ___ Score 2 (cells larger than normal with open vesicular nuclei, visible nucleoli, and moderate variability in both size and shape) Mitotic Rate ___ Score 1 Overall Grade ___ Grade 2 (scores of 6 or 7) + Tumor Focality + ___ Single focus of invasive carcinoma Ductal Carcinoma In Situ (DCIS) ___ Not identified + Lobular Carcinoma In Situ (LCIS) + ___ Not identified Tumor Extension Skin ___ Skin is present and uninvolved Nipple ___ DCIS does not involve the nipple epidermis Skeletal Muscle ___ No skeletal muscle is present . Margins [facility] [address] [place] [address] PATHOLOGY RPT PROCEDURE Name: FATOUMATA WILLETT Room #: DEP [facility] M.R.#: [id number] Admission: 05/22/19 Date of : 31 Discharge: 05/23/19 Report #: [id number] Path Case #: [id number] Invasive Carcinoma Margins ___ Positive for invasive carcinoma ___ Posterior/deep margin involved DCIS Margins ___ Not applicable (no DCIS in specimen) Regional Lymph Nodes ___ Uninvolved by tumor cells Total Number of Lymph Nodes Examined: 1 Number of [place] Nodes Examined: 1 . Treatment Effect in the Breast ___ No known presurgical therapy Treatment Effect in the Lymph Nodes ___ Not applicable + Lymphovascular Invasion + ___ Not identified + Dermal Lymphovascular Invasion + ___ Not identified . Pathologic Stage Classification (pTNM, AJCC 8th Edition) Primary Tumor (pT) ___ pT2: Tumor >20 mm but < or = 50 mm in greatest dimension Regional Lymph Nodes Modifier ___ (sn): [place] node evaluated. Regional Lymph Nodes (pN) ___ pN0: No regional lymph node metastasis identified Distant Metastasis (pM) ___ Not applicable . Breast Biomarker testing performed on biopsy at [facility] Specimen # [id number] . ER positive 99% staning strong NV positive 60 % staining intermediate Her2 negative 0% Ki67 5% . (SIMONE/db; 05/25/2019) LBQ 05/26/2019 1402 Local . 03 Comment: This case was also reviewed by Dr. Angela Cintron. The posterior/deep margin is focally positive to about 2.5 mm. This case was also discussed with Dr. Benjy Hussein on 05/26/2019 at 1pm. Immunoperoxidase stain AE1/AE3 block A1 negative Immunoperoxidase stain AE1/AE3 block B2 and B4 revealing positive margin Immunoperoxidase stain ECAD positive block B4 tumor is of ductal origin . [address] [facility] [address] [place] [address] PATHOLOGY RPT PROCEDURE Name: FATOUMATA WILLETT Room #: DEP [facility]#: [id number] Admission: 05/22/19 Date of : 33 Discharge: 05/23/19 Report #: [id number] Path Case #: [id number] Electronically signed: . Austin Pierce MD, Pathologist NPI- [id number] . 01 Gross description: . A. PLEASE SEE FROZEN SECTION FOR GROSS DESCRIPTION. . B. The specimen is received in formalin, labeled "Fatoumata Willett, left breast, short stitch superior, long stitch lateral". Received is a 246.8 g mastectomy specimen with a short suture designating the superior aspect and a long suture designating the lateral aspect. The specimen measures 16.2 cm from superior to inferior, 16.2 cm from medial to lateral, and 3.2 cm from anterior to posterior. The anterior aspect has an attached ellipse of skin measuring 18.4 x 6.4 cm with an eccentrically located, everted nipple and areolar complex, measuring 1.3 x 0.9 and 4.8 x 3.3 cm, respectively. The specimen is inked as follows: Superior/anterior-blue, inferior/anterior-green, posterior-black. The specimen is sectioned from medial to lateral aspects to reveal a poorly circumscribed, white fibrous mass measuring 2.5 x 2.0 x 1.3 cm in greatest dimensions, which is 0.5 cm from the closest margin (posterior). In this mass is a previous biopsy site measuring 1.0 x 0.3 x 0.3 cm. The remainder of the specimen displays bright yellow fibrofatty cut surfaces, with the fibrous tissue encompassing approximately 5-10% of the specimen. No additional nodules or lesions are noted grossly. The specimen is submitted representatively as follows: . B1 perpendicular section through nipple B2-B6 life assurance representative sections of mass submitted from medial to lateral aspects, to include all of previous biopsy site (90% of the mass is submitted) B7 upper inner quadrant B8 lower inner quadrant B9 lower outer quadrant B10 upper outer quadrant. . The cold ischemic time is 32 minutes. The total formalin fixation time is 31 hours. . C. The specimen is received in formalin, labeled "Fatoumata Willett, extra left axillary tissue". Received is a segment of yellow-lyles lobulated tissue measuring 5.5 x 1.0 x 0.5 cm in aggregate dimensions. Sectioning reveals bright yellow, lobulated cut surfaces throughout with no grossly distinct nodules, lesions, or lymph nodes. The specimen is submitted representatively in cassette C1. (CAA; 05/23/2019) [facility] 05/23/2019 1144 Local . 03 Pathologist provided ICD-10: [address] [address] PATHOLOGY RPT PROCEDURE Name: FATOUMATA WILLETT Room #: DEP [facility] Phan#: [id number] Admission: 05/22/19 Date of : 33 Discharge: 05/23/19 Report #: [id number] Path Case #: [id number] . 03 CPT . 750398, [id number], [id number], [id number], [id number], [id number] Specimen Comment: A courtesy copy of this report has been sent to [phone], [phone] Specimen Comment: [id number] Specimen Comment: Report sent to / DR HERNANDEZ Performed at: 01 [facility] [address] [id number] MD Gautam Denise MD Phone: [phone] Performed at: [address] [id number] MD Angela Cintron MD Phone: [phone] Performed at: 03 [facility] [address] [id number] MD Tom Montes MD Phone: [phone]
== END 2019-05-23 17:02 | disposition home or self-care (01) ==
LOC: OR 10:14 → TBA 12:30 → OR 15:14 → 4S 16:00 → OR 16:11
PROVIDERS: Surgery
DX: C50.912 Malignant neoplasm of unspecified site of left female breast (principal); R59.0 Localized enlarged lymph nodes; I10 Essential (primary) hypertension; I48.91 Unspecified atrial fibrillation; F32.9 Major depressive disorder, single episode, unspecified; F41.9 Anxiety disorder, unspecified; E03.9 Hypothyroidism, unspecified; Z85.3 Personal history of malignant neoplasm of breast; Z96.653 Presence of artificial knee joint, bilateral; Z90.710 Acquired absence of both cervix and uterus; Z90.49 Acquired absence of other specified parts of digestive tract; Z98.51 Tubal ligation status; Z98.890 Other specified postprocedural states; Z79.899 Other long term (current) drug therapy
CPT/HCPCS: 10102; 50010; 50101; 50386; 50417; 50445; 51301; 54118; 56524; 56525; 56526; 56805; 62110; 62900; 70005

== ENCOUNTER → 2019-06-09 | Outpatient (CLI) | payer OTHER ==
[~2019-06-09] MED LIST changes: +CALCIUM500 MG PO
--- NOTE | 2019-06-21 08:03 | HPC ---
[facility] [address] [place] [place] [address] PAIN MANAGEMENT CONSULTATION Name: CORNELL MYERS Room #: REG JANETH Daniela.#: [id number] Admission: 06/09/19 Attend Phys: Lora Lopez MD Discharge: Date of : 33 Report #: [id number] THIS REPORT FOR: cc: Iban Gutierrez MD,Iban Lopez,Lora Springer MD ~ CC: Iban Lopez DATE OF SERVICE: 06/09/2019 CHIEF COMPLAINT: "I have had breast cancer surgery since I saw you last." HISTORY: The patient is an 84-year-old female who has been followed in the pain clinic because of chronic back pain. She has a history of spinal stenosis. Her pain started after her 's fall. She was his primary caregiver. After doing activities of caregiving, she noticed worsening of pain and discomfort. Does have a problem with scoliosis. She has found that epidural steroid injections have been helpful. She does ambulate with a walker. She states that since we saw her last, she developed breast cancer or was found to have breast cancer. She has had a mastectomy. She has returned today for renewal of her medications. She was told that the cancer is a slow growing type. She states that there was a small portion of it that was found microscopically. She may have to undergo radiation therapy. ALLERGIES: No known drug allergies. CURRENT MEDICATIONS: Vitamin D3, vitamin D4 b.i.d., MiraLax 17 grams, levothyroxine, lisinopril 10 mg, vitamin A, vitamin C, vitamin E, Effexor, magnesium 250 mg, own a.m., amiodarone 200 mg, trazodone 50 mg, gabapentin 100 mg t.i.d., meloxicam 7.5 mg. The patient uses 1/2 of a 15 mg tablet. Oxycodone 10 mg/325. PAIN CLINIC ASSESSMENT AND PQRS: 1. The patient has some osteoarthritic changes in her back. She is not being treated for rheumatoid arthritis. She does have scoliosis. 2. Height 5 feet 3 inches, weight 130 pounds, BMI is 23. 3. Vital signs: Blood pressure 120/75, pulse 85, respiratory rate 16, room air saturation 94%. 4. Pain intensity, 10/01. 5. Fall history. The patient has not fallen since we saw her last. 6. Blood thinner. The patient is not on a blood thinning medication. 7. Hypertension. The patient is not being treated for hypertension. 8. Opioids. The patient receives medications from the pain clinic. 9. Risk assessment tool, low for opioid use. 10. Functional assessment tool, 44/70. [place] [address] PAIN MANAGEMENT CONSULTATION Name: CORNELL MYERS [id number] Admission: 06/09/19 Attend Phys: Lora Lopez MD Discharge: Date of : 33 Report #: [id number] 11. Recreational drug use. The patient denies. 12. Tobacco. The patient has never smoked. 13. Alcohol. The patient denies frequent use of alcoholic beverages. PHYSICAL EXAMINATION: GENERAL: The patient is a well-developed, well-nourished, 84-year-old female. Appears her stated age. She is alert and oriented x 3. She is unaccompanied. Speech is fluent. HEENT: Normocephalic, atraumatic. Extraocular eye muscles intact. The patient is wearing glasses. NECK: Without adenopathy or JVD. HEART: Regular. ABDOMEN: Nontender. MUSCULOSKELETAL: The patient with scoliosis in the upper portion of her back. Has pain in the left side. Walks with her brace on her back. Notes some increased discomfort with sitting erect. IMPRESSION: 1. Recent mastectomy. 2. Left hip pain. 3. History of spinal stenosis with neurogenic claudication. 4. Atrial fibrillation history. 5. Hypertension. 6. Hypothyroidism. 7. Macular degeneration. 8. Irritable bowel syndrome. 9. 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 10. Left inferior ramus fracture, stable. RECOMMENDATIONS: We discussed treatment options with the patient. At this juncture, we will continue with her current medications. She is aware that the medications can become less effective over time. Opioid medications can lose their effectiveness because of development of tolerance. She feels overall that the medications are working reasonably well. She is taking 1/2 of a Meloxicam 7.5 mg about every other day. She will stop taking this medication should she note any GI complaints. She will also continue with gabapentin 100 mg. She will take 2 tablets in the morning, 1 midday and 1 at bedtime. A script for the oxycodone 10 mg 1 p.o. b.i.d. has been rewritten. The patient will call us if she has any concerns. She is able to think clearly. She is not having any problems with her balance with use of her opioid medications. [address] [address] PAIN MANAGEMENT CONSULTATION Name: CORNELL MYERS Room #: REG JANETH Silva.#: [id number] Admission: 06/09/19 Attend Phys: Lora Lopez MD Discharge: Date of : 33 Report #: [id number] We would like to thank you for letting us participate in her care. <ELECTRONICALLY SIGNED> By: Lora Lopez MD 06/21/19 0803 2219 0015 Lora Lopez MD /PMT
== END ==
LOC: PAIN 10:26
DX: M54.5 Low back pain (principal); M25.552 Pain in left hip; I10 Essential (primary) hypertension; E03.9 Hypothyroidism, unspecified; H35.30 Unspecified macular degeneration; K58.9 Irritable bowel syndrome, unspecified; M19.90 Unspecified osteoarthritis, unspecified site; Z90.12 Acquired absence of left breast and nipple; Z79.891 Long term (current) use of opiate analgesic; Z79.899 Other long term (current) drug therapy

== ENCOUNTER → 2019-07-12 | Outpatient (CLI) | payer OTHER ==
--- NOTE | 2019-07-13 07:28 | HPC ---
[facility] [place] [address] PAIN MANAGEMENT CONSULTATION Name: CORNELL MYERS Room #: REG [facility].#: [id number] Admission: 07/12/19 Attend Phys: Funmilayo Scanlon Discharge: Date of : 33 Report #: [id number] THIS REPORT FOR: cc: Iban Gutierrez MD, Christopher B. MD Hocker, Amanda CNS ~ CC: Alton Lopez MD DATE OF SERVICE: 07/12/2019 CHIEF COMPLAINT: Chronic low back pain. This is a telemedicine appointment from 1320 hours to 1350 hours over the telephone due to the patient's immunosuppressed status during this COVID outbreak. The patient has given consent. CHIEF COMPLAIN: low back pain. HISTORY OF PRESENT ILLNESS: This is a very pleasant 84-year-old female who I am speaking with via the telephone today for a telemedicine appointment. Today, she is rating her pain score at 10/10, but it is manageable per her report. The patient states she is not in severe enough pain to go to the emergency even though her pain is rated at 10/10. Her pain is located in her lower back, occasionally does radiate into her legs, most specifically is in her low back. She states it is an aching, constant pain, worse with any sitting and standing. She feels that the best position is lying down. She feels that her medications are very beneficial and do not cause her to have significant constipation or daytime sleepiness. She would like refills of these medications today. The patient reports she has been staying home during this COVID outbreak, therefore she had to stop doing her physical therapy, which she thought was very helpful in controlling some of her pain. She reports that her and her are going to go by the physical therapy business this week and see if they are open, so she may hopefully restart her therapy. She has not been doing her exercises at home as she should. She also continues to recover from her left mastectomy that she had in April. She feels that has very minimal pain in her mastectomy area. ALLERGIES: No known drug allergies. CURRENT LIST OF MEDICATIONS: Meloxicam 15 mg a half to one tablet a day, gabapentin 100 mg 4 times a day, oxycodone 10/325, calcium, losartan, vitamin B12, PreserVision, omega 3, Tambocor, multivitamin, trazodone, MiraLax, vitamin D, Effexor, and levothyroxine. PQRS: [address] [address] PAIN MANAGEMENT CONSULTATION Name: CORNELL MYERS Room #: REG [facility].#: [id number] Admission: 07/12/19 Attend Phys: Funmilayo Scanlon Discharge: Date of : 33 Report #: [id number] 1. She has a history of osteoarthritis in her knees and spine. Denies any rheumatoid arthritis. 2. Height, weight and vital signs were deferred today due to a telemedicine appointment. 3. Pain score is 10/10. 4. Denies dizziness. Does need assistance with walking, uses a walker. She has not fallen in the last 3 months. 5. The patient is not on any blood thinners or medicine for hypertension. 6. Opioid therapy is greater than 6 weeks; therefore, an opioid signed contract is on the chart. Risk assessment tool is low. Functional assessment is 44/70. 7. Recreational drug use, she denies. She is not a smoker and does not drink alcohol. According to the prescription monitoring system, her last prescription fill was June 11, so she is due to fill those today. According to the CDC guidelines, her morphine mEq is less than 50 MMEs per day. PHYSICAL EXAMINATION: This is a review of systems due to a telemedicine appointment. She is alert and orientated female who is answering all my questions appropriately, rating her pain score at 10/10 today. She states that her pain is in the lower portion of her back. She does also have scoliosis in the upper part of her back. She wears a back brace and does use a walker at all times. IMPRESSION: 1. Recent left mastectomy. 2. Left hip pain. 3. History of spinal stenosis with neurogenic claudication. 4. Macular degeneration. 5. Generalized osteoarthritis in multiple joints. 6. Complex medical management under terms of written opioid agreement. PLAN: 1. We discussed treatment options with the patient today. The patient finds her oxycodone very beneficial averaging 3 tablets a day with occasional fourth on a very painful day. These do not cause any significant constipation issues. She would like a refill. This will be sent electronically by Dr. Mario Lopez to her pharmacy for #100 pills. I explained to the patient, we will have her return in 1 month to evaluate her pain. If she is stable, we will possibly have her come every 2 months. 2. The patient states the gabapentin is beneficial, but feels that if she takes two in the morning, one in the midafternoon and one in the evening that is more beneficial in decreasing her pain. We will sent electronically #120 taking two, one and one with 2 refills. 3. The patient will call for an appointment in [address] [address] PAIN MANAGEMENT CONSULTATION Name: CORNELL MYERS Room #: REG JANETH SilvaNick#: [id number] Admission: 07/12/19 Attend Phys: Funmilayo Scanlon Discharge: Date of : 33 Report #: [id number] 4. The patient has spoken today with the collaboration with Dr. Mario Lopez. <ELECTRONICALLY SIGNED> By: Funmilayo Scanlon 07/13/19 0728 1422 1645 Funmilayo Scanlon /mari
== END ==
LOC: TELEPC 07:08 → PAIN 09:12 → TELEPC 09:22
DX: M54.5 Low back pain (principal); M25.552 Pain in left hip; H35.30 Unspecified macular degeneration; M19.90 Unspecified osteoarthritis, unspecified site; F11.20 Opioid dependence, uncomplicated; Z87.39 Personal history of other diseases of the musculoskeletal system and connective tissue; Z90.12 Acquired absence of left breast and nipple; Z79.899 Other long term (current) drug therapy

== ENCOUNTER → 2019-08-08 | Outpatient (CLI) | payer OTHER ==
[~2019-08-08] VITALS: Ht 160 cm; Wt 59.4 kg
[2019-08-08 09:45] VITALS: BP 138/81
--- NOTE | 2019-08-08 09:58 | NUR ---
Pain Clinic Assessment: 1. History of Osteoarthritis: SPINE KNEES History of Rheumatoid Arthritis: DENIES 2. Height: 5 ft. 3 in. 160.0 cm. Weight: 131.0 lb. oz. 59.421 kg. Patient's BMI: 23.2 3. Vital Signs: BP: 138/81 Pulse: 74 Resp: 16 Temp: 02 Sat: 97 ECG Mon: 4. Pain Intensity: 6-7 SITTING 5. Fall Risk: Dizziness: N Needs help standing or walking: Y Fallen in the last 3 months: N Fall risk comments: USES WALKER 6. Patient on Blood Thinner: None 7. History of Hypertension: N 8. Opioid Therapy greater than 6 weeks: Y Opiate Contract Signed: 08/03/18 9. Risk Assessment Tool Provided: LOW 10. Functional Assessment Tool: 44 11. Recreational Drug Use: Never Drug Type: Tobacco Use: Former Smoker Tobacco Type: Amount or Packs/day: How Many Years: Alcohol Use: No Frequency: Quant:
--- NOTE | 2019-08-09 07:40 | HPC ---
[facility] [place] [address] PAIN MANAGEMENT CONSULTATION Name: CORNELL MYERS Room #: REG [facility]..#: [id number] Admission: 08/08/19 Attend Phys: Funmilayo Scanlon Discharge: Date of : 33 Report #: [id number] THIS REPORT FOR: cc: Iban Gutierrez MD, Christopher B. MD Hocker, Amanda CNS ~ CC: Alton Lopez MD DATE OF SERVICE: 08/08/2019 CHIEF COMPLAINT: Chronic low back pain. HISTORY OF PRESENT ILLNESS: This is an 84-year-old female who returns to the pain clinic today for refill of her medications. Today, she is reporting a pain score of 6-7. She states that she has no leg pain. It is only in her lower back, especially when she is bending, lifting things or prolonged sitting. She feels that the medication as well as lying down have been beneficial. She denies any problems with constipation or daytime somnolence. The patient does report she has restarted her physical therapy. She feels that exercising and stretching are the most beneficial things in decreasing her pain aside from her medications. She was unable to go to therapy during the COVID outbreak, so she is very happy to be going 2 times a week again. She does report she does continue her exercises at home. ALLERGIES: No known drug allergies. CURRENT LIST OF MEDICATIONS: Percocet 10/325 three to four times a day, gabapentin 100 mg tablets 3 times a day, meloxicam p.r.n., calcium, vitamin D3, losartan, vitamin B12, PreserVision, fish oil, flecainide, multivitamin, trazodone, Effexor, and levothyroxine. PQRS: 1. The patient has osteoarthritis in her spine and knees. Denies any rheumatoid arthritis. 2. Height is 5 feet 3 inches, weight is 131, BMI is 23. 3. Vital signs 138/81, pulse is 74, respirations 16, oxygen sat is 97. 4. Pain score is 6-7. 5. Denies dizziness, does need help walking and uses a walker. Has not fallen in the last 3 months. 6. The patient is not on any blood thinners or medicine for hypertension. 7. Opioid therapy is greater than 6 weeks; therefore, an opioid signed contract is on the chart. Risk assessment tool is low. Functional assessment is 44/70. 8. Recreational drug use, she denies. She is a former smoker [place] [address] PAIN MANAGEMENT CONSULTATION Name: CORNELL MYERS Room #: REG [facility].#: [id number] Admission: 08/08/19 Attend Phys: Funmilayo Scanlon Discharge: Date of : 33 Report #: [id number] According to the prescription monitoring system, the patient is filling appropriately. Her morphine milliequivalent per day is 52. PHYSICAL EXAMINATION: GENERAL: This is alert and orientated 84-year-old who is well-developed, well-nourished, rating her pain score today at 6-7. HEENT: Normocephalic, atraumatic. Extraocular eye muscles are intact. She is wearing glasses and she has a mask on. NECK: Without adenopathy or JVD. MUSCULOSKELETAL: She has scoliosis in the upper region of her spine. Pain located in the lumbar region. Straight leg raising does not produce any pain. She does use assistance of a walker. Lower extremity strength judged to be 5/5. IMPRESSION: 1. Recent left mastectomy. 2. Left hip pain. 3. History of spinal stenosis with neurogenic claudication. 4. Macular degeneration. 5. Generalized osteoarthritis, multiple joints. 6. Complex medical management under terms of written opioid agreement. We reviewed the fact that opiate medications are being used to provide analgesia adequate to support activities of daily living, not attempting to achieve a specific pain score on the 0-10 Visual Analog Scale. The current opiate medications are providing sufficient analgesia to allow the patient to participate in activities of daily living. The patient is not exhibiting any aberrant behavior suggestive of drug diversion. The patient is not having any adverse reactions to medications. The patient is not suffering from daytime somnolence or mental acuity changes. The patient is managing opiate-induced constipation with appropriate cjfj-bwe-rrjgcnp agents and dietary considerations. The patient was counseled on concern for caution with operating a motor vehicle while using opiate medications. PLAN: 1. We discussed treatment options with the patient today. The patient finds her opioid medication beneficial. She was wondering about an increase. I explained to her that Dr. Lopez is allowing her 100 tablets per month that is 3 tablets every day with occasional fourth pill on her increased pain days. This keeps her at 50 morphine milliequivalent per day according to the CDC guidelines, which is where we would like to continue her. I will let her have 2 months of medications this time as discussed previously with Dr. Lopez, so the patient does not need to come on a monthly basis to our clinic. The patient is thankful for that. We will send oxycodone 10/325, #100 to her pharmacy for today and 4-week release. 2. Since I am not increasing her opioid medications, I encouraged the patient [address] [address] PAIN MANAGEMENT CONSULTATION Name: CORNELL MYERS Room #: REG [facility]..#: [id number] Admission: 08/08/19 Attend Phys: Funmilayo Scanlon Discharge: Date of : 33 Report #: [id number] to increase her gabapentin taking 2 tablets in the morning, 1 at midday, 1 at night. We have been prescribing this for the patient, though she has only been taking 3 pills total a day. I believe this will help with some of her pain as well. The patient encouraged to start this regimen tomorrow. No scripts needed today. 3. The patient does continue her meloxicam on an as needed basis, taking one-half tablet, scripts will be sent for 15 mg a half p.r.n., #30 with no refills. 4. The patient encouraged to call for an appointment as needed. The patient is seen in collaboration with Dr. Mario Lopez. <ELECTRONICALLY SIGNED> By: Funmilayo Scanlon 08/09/19 0740 [id number] [id number] Funmilayo Scanlon /mari
== END ==
LOC: PAIN 06:56
PROVIDERS: ATTEND Clinical Nurse Specialist Adult Health
DX: M54.5 Low back pain (principal); M25.552 Pain in left hip; M19.90 Unspecified osteoarthritis, unspecified site; F11.20 Opioid dependence, uncomplicated; Z87.39 Personal history of other diseases of the musculoskeletal system and connective tissue; Z79.899 Other long term (current) drug therapy

== ENCOUNTER → 2019-09-06 | Outpatient (CLI) | payer OTHER ==
[~2019-09-06] VITALS: Ht 160 cm; Wt 59.4 kg
[~2019-09-06] MED LIST changes: +ACETAMINOPHEN325 M1 PO; +ARIMIDEX1 MG PO; -EFFEXOR XR75 MG PO; +VENLAFAXINE HCL75 M1 PO
[2019-09-06 09:07] VITALS: BP 118/72
--- NOTE | 2019-09-06 09:19 | NUR ---
Pain Clinic Assessment: 1. History of Osteoarthritis: SPINE KNEES History of Rheumatoid Arthritis: DENIES 2. Height: 5 ft. 3 in. 160.0 cm. Weight: 131.0 lb. oz. 59.421 kg. Patient's BMI: 23.2 3. Vital Signs: BP: 118/72 Pulse: 76 Resp: 16 Temp: 02 Sat: 97 ECG Mon: 4. Pain Intensity: 10 5. Fall Risk: Dizziness: N Needs help standing or walking: Y Fallen in the last 3 months: N Fall risk comments: USES WALKER 6. Patient on Blood Thinner: None 7. History of Hypertension: N 8. Opioid Therapy greater than 6 weeks: Y Opiate Contract Signed: 08/03/18 9. Risk Assessment Tool Provided: LOW 10. Functional Assessment Tool: 44 11. Recreational Drug Use: Never Drug Type: Tobacco Use: Former Smoker Tobacco Type: Cigarettes Amount or Packs/day: 1/2 How Many Years: 20 Alcohol Use: No Frequency: Quant:
--- NOTE | 2019-09-06 15:30 | HPC ---
[facility] [address] [place] [address] PAIN MANAGEMENT CONSULTATION Name: CORNELL MYERS Room #: REG [facility] M..#: [id number] Admission: 09/06/19 Attend Phys: Funmilayo Scanlon Discharge: Date of : 33 Report #: [id number] THIS REPORT FOR: cc: Iban Gutierrez MD, Christopher B. MD Hocker, Amanda CNS ~ CC: Alton Lopez MD DATE OF SERVICE: 09/06/2019 CHIEF COMPLAINT: Chronic low back pain. HISTORY OF PRESENT ILLNESS: This is a very pleasant 84-year-old female who returns to the pain clinic today for refill of her opioid medication that she uses to help treat her ongoing chronic axial back pain. She states today that her pain score is 10/10, again in her lower back. She feels that her arthritis is worsening. She reports any sitting or bending makes her pain worse. She feels as long as she takes her medication and lies down her pain is slightly relieved. She denies problems with constipation or daytime somnolence as a result of her medication. The patient also reports that she did have a left mastectomy about 6 weeks ago. She feels that she is fully recovered from that. She had minimal pain and did not require any additional pain pills for that procedure. ALLERGIES: No known drug allergies. CURRENT LIST OF MEDICATIONS: Meloxicam 0.5 mg p.r.n.; oxycodone 10/325, 3-4 tablets a day; gabapentin 100 mg capsules 2 in the morning, 1 midday, 1 in the afternoon; calcium; vitamin D3; losartan; vitamin B12; PreserVision; fish oil; Tambocor; Centrum Silver; Desyrel; MiraLax; Effexor and levothyroxine. PQRS: She has arthritic changes in her spine and knees. Denies any rheumatoid arthritis. Height is 5 feet 3 inches, weight is 131, BMI is 23. Vital signs 118/72, pulse is 76, respirations 16, oxygen sat is 97%. Pain score 10/10. The patient denies dizziness. Does need assistance with a walker for ambulation and has not fallen in the last 3 months. The patient is not on any blood thinners or medicine for hypertension. Opioid therapy is greater than 6 weeks; therefore, an opioid signed contract is on the chart. Risk assessment tool is low. Functional assessment is 44/70. Recreational drug use, she denies. She is a former smoker and does not drink alcohol. According to the prescription monitoring system, the patient is filling appropriately for her medications, filling them in a timely fashion. She is due to fill those today. Her morphine milliequivalent according to the CDC guidelines is 60-70 depending on her usage. [address] [address] PAIN MANAGEMENT CONSULTATION Name: IOANAMARIA ISABELCORNELL Room #: REG [facility]#: [id number] Admission: 09/06/19 Attend Phys: Funmilayo Scanlon Discharge: Date of : 33 Report #: [id number] PHYSICAL EXAMINATION: GENERAL: This is alert and orientated 84-year-old who is well-developed, well-nourished, stating her pain score today at 10/10. HEENT: Normocephalic, atraumatic. Extraocular eye muscles are intact. She is wearing a mask. NECK: Without adenopathy or JVD. MUSCULOSKELETAL: Straight leg raising does not produce pain. She uses assistance of a walker and has a slightly antalgic gait. Her lower extremity strength judged to be 5/5 in all major muscle groups. She has scoliosis in the upper region of her spine. Pain is located in the lumbosacral region. IMPRESSION: 1. Left hip pain. 2. History of spinal stenosis with neurogenic claudication. 3. Generalized osteoarthritis in multiple joints of back and knees. 4. Breast cancer with recent left mastectomy. 5. Complex medical management under terms of written opioid agreement. 6. Axial back pain. We reviewed the fact that opiate medications are being used to provide analgesia adequate to support activities of daily living, not attempting to achieve a specific pain score on the 0-10 Visual Analog Scale. The current opiate medications are providing sufficient analgesia to allow the patient to participate in activities of daily living. The patient is not exhibiting any aberrant behavior suggestive of drug diversion. The patient is not having any adverse reactions to medications. The patient is not suffering from daytime somnolence or mental acuity changes. The patient is managing opiate-induced constipation with appropriate ejgt-wlg-lvpiilq agents and dietary considerations. The patient was counseled on concern for caution with operating a motor vehicle while using opiate medications. PLAN: 1. We discussed treatment options with the patient today. The patient will continue on her current pain regimen of oxycodone 10/325 taking 3-4 tablets a day, #[address]. Lopez will send these electronically for today and 4-week supply. 2. We did discuss her arthritic changes and the need for her nonsteroidal anti-inflammatory. The patient has been taking this on an as needed basis. I encouraged her to take half in the morning and half at night on a daily basis to see if this does reduce her pain, stopping if it does cause GI upset. I will send meloxicam 15 mg, #30 with 2 additional refills. 3. We will continue her on her gabapentin. The patient takes 200 in the morning, 100 midday and 100 at night, quantity 120, will be sent to her pharmacy with 2 additional refills. [facility] [address] [place] [address] PAIN MANAGEMENT CONSULTATION Name: LUCIACORNELL KELVIN [id number] Admission: 09/06/19 Attend Phys: Funmilayo Scanlon Discharge: Date of : 33 Report #: [id number] 4. The patient will call for an appointment as needed. The patient is seen in collaboration with Dr. Mario Lopez. <ELECTRONICALLY SIGNED> By: Funmilayo Scanlon 09/06/19 1530 [id number] [id number] Funmilayo Scanlon /nt
== END ==
LOC: PAIN 06:52
PROVIDERS: ATTEND Clinical Nurse Specialist Adult Health
DX: M54.5 Low back pain (principal); M25.552 Pain in left hip; M17.0 Bilateral primary osteoarthritis of knee; M47.9 Spondylosis, unspecified; F11.20 Opioid dependence, uncomplicated; Z85.3 Personal history of malignant neoplasm of breast; Z90.12 Acquired absence of left breast and nipple; Z86.69 Personal history of other diseases of the nervous system and sense organs; Z79.899 Other long term (current) drug therapy

== ENCOUNTER 2019-09-26 13:13 | Inpatient (IN) | payer OTHER ==
[~2019-09-26] VITALS: Ht 154.9 cm; Wt 59.9 kg
[2019-09-26 13:13] VITALS: BP 120/74
[~2019-09-26 13:13] MED LIST changes: -ACETAMINOPHEN325 M1 PO; -ARIMIDEX1 MG PO
[2019-09-26] MEDS ORDERED: MELOXICAM15 MG PO (16:28)
[2019-09-26 18:19] LABS: HEMATOCRIT 29.7 % (37.0-47.0); HEMOGLOBIN 10.4 gm/dL (12.0-15.0); MCH 32.8 pg (26.0-34.0); MCHC 34.9 g/dL (28.0-37.0); MCV 93.8 fL (80.0-100.0); RBC 3.17 mil/uL (4.20-5.00); WBC 6.9 thou/uL (4.0-11.0)
[2019-09-26 18:23] LABS: CALCIUM 9.6 mg/dL (8.5-10.1); CREATININE 0.8 mg/dL (0.6-1.0); POTASSIUM 4.4 mmol/L (3.5-5.1)
[2019-09-26 18:27] LABS: URINE BILIRUBIN NEGATIVE (Negative); URINE BLOOD NEGATIVE (Negative); URINE CLARITY CLEAR; URINE COLOR YELLOW; URINE GLUCOSE-RANDOM* NEGATIVE (Negative); URINE KETONES NEGATIVE (Negative); URINE PROTEIN (DIPSTICK) NEGATIVE (Negative); URINE UROBILINOGEN 0.2 E.U./dl (0.2-1.0)
[2019-09-26 18:28] LABS: URINE LEUKOCYTES-REFLEX 2+ (Negative); URINE NITRITE-REFLEX POSITIVE (Negative)
[2019-09-26 18:35] VITALS: BP 120/81
[2019-09-26 18:50] LABS: BACTERIA-REFLEX >30 Many /HPF (None Seen); CASTS None Seen /LPF (None Seen); CRYSTALS None Seen /LPF (None Seen); SQUAMOUS None Seen /LPF (0-3); URINE RBC None Seen /HPF (0-2); URINE WBC-REFLEX 6-15 Few /HPF (0-5)
--- NOTE | 2019-09-26 19:25 | NUR ---
FIRST ATTEMPT AT REPORT CALLED WITH NO ANSWER
[2019-09-27 00:32] VITALS: BP 153/69
--- NOTE | 2019-09-27 04:54 | NUR ---
ASSUMED PT CARE AT 1999. PT IS A&O. PT TOOK SCHEDULED MEDS. PT HAS BACK, HIP AND LEG PAIN. PT COMPLAINS OF PAIN WHEN MOVING HER TO GET ON BEDPAN. PLACED WOMENS EXTERNAL CATH. PT DID NOT LIKE IT. RECONCILED PT MEDS, THEY START 09/27/2019. PT WAS RESTLESS. PT TOOK TRAZODONE.
[2019-09-27 06:35] LABS: HEMATOCRIT 30.5 % (37.0-47.0); HEMOGLOBIN 10.4 gm/dL (12.0-15.0); MCH 31.2 pg (26.0-34.0); MCHC 34.2 g/dL (28.0-37.0); MCV 91.3 fL (80.0-100.0); RBC 3.34 mil/uL (4.20-5.00); RDW 13.5 % (10.5-14.5); WBC 4.8 thou/uL (4.0-11.0)
[2019-09-27 06:59] LABS: CALCIUM 9.4 mg/dL (8.5-10.1); CREATININE 0.6 mg/dL (0.6-1.0); POTASSIUM 3.7 mmol/L (3.5-5.1)
[2019-09-27 07:30] VITALS: BP 160/91
--- NOTE | 2019-09-27 08:47 | NUR ---
ASSESSMENT: CM REVIEWED CHART. PT WAS ADMITTED DUE TO INABILITY TO AMBULATE OR BEAR WEIGHT ON RIGHT LOWER EXTREMITY. PT IS ALSO HAVING HIP PAIN. ORTHO HAS BEEN CONSULTED TO SEE PATIENT AND PT/OT. CM ATTEMPTED TO CONTACT PTS ROOM BUT NO ANSWER. CM REACHED OUT TO PATIENTS . SHE LIVES IN A HOUSE WITH . THERE ARE TWO STEPS TO ENTER WITH NO HANDRAILS AND ABOUT 14 STEPS WITH HANDRAILS TO THEIR BEDROOM. PT AMBULATES WITH A WALKER AT TIMES AND OTHER TIMES INDEPENDENTLY. PT IS NORMALLY INDEPENDENT WITH ADLS. PT HAS HAD [facility] IN THE PAST AND HAS NOT BEEN TO A SNF. PT STILL DRIVES. CM DISCUSSED ROLE. WILL AWAIT INPUT FROM ORTHO AND THERAPIES. CM WILL CONTINUE TO FOLLOW.
[2019-09-27 16:14] VITALS: BP 115/78
--- NOTE | 2019-09-27 17:52 | NUR ---
PT IS AOX4, VSS, TURNED Q 2H IN BED. PT REPORTS GENERALIZED PAIN, NURSE GAVE IV AND PO PRN MEDS ORDERED. PT HAS EXTERNAL CATH FOR INCONTINENCE. PT HAS GOOD APPETITE. TAKE PILLS WHOLE WITH SIPS OF WATER. CALL LIGHT IN REACH, FALL PRECAUTIONS IN PLACE. WILL CONTINUE TO MONITOR.
[2019-09-27 19:54] VITALS: BP 149/81
--- NOTE | 2019-09-27 23:24 | NUR ---
ASSUMED PT CARE AT 1900. PT RATED PAIN 01/31, WAS NOT DUE FOR PO MEDS, THEREFORE IV WAS GIVEN AND PROVIDED RELIEF. SENT HOME MEDS TO PHARMACY. FEMALE EXTERNAL CATH IN PLACE. CURRENTLY RESTING IN BED WITH EYES CLOSED, NO COMPLAINTS AT THIS TIME.
[2019-09-28 04:34] VITALS: BP 131/76
[2019-09-28 07:50] VITALS: BP 136/84
--- NOTE | 2019-09-28 10:47 | NUR ---
CM REVIEWED CHART. ATTENDING STATING PATIENT MAY BENEFIT FROM [facility]. CONSULT WAS PLACED. PT/OT STILL HAVE TO SEE PATIENT AND AWAITING FURTHER RECOMMENDATIONS. [facility]ASON PRESENT AND NOTIFIED OF CONSULT. CM NOTIFIED ATTENDING THAT PATIENT WILL LIKELY NEED A COIVD TEST ORDERED IF [facility] CANNOT ACCEPT PATIENT AND SHE WILL NEED SNF. AWAITING PT/OT EVALS AT THIS TIME AND FURTHER INPUT FROM [facility] WE WILL NEED INSURANCE AUTH IF THEY CAN ACCEPT.
--- NOTE | 2019-09-28 14:51 | NUR ---
Assumed care of pt. at 0700. Pt. was calm and cooperative. Pt. was curious about discharge. Pt. received pain medication when asked for. COVID test was collected at 1447. Fall precautions in place.
[2019-09-28 20:29] VITALS: BP 142/70
--- NOTE | 2019-09-29 01:05 | NUR ---
ASSUMED PT CARE AT 1900. PT IS A&OX4. PAIN BEING MANAGED WITH IV AND PO PAIN MEDS - PT FREQ REQUESTS MORE PAIN MEDS. UP TO THE BSC WITH ASSIST TWICE FOR BM. FEMALE EXTERNAL CATHETER IN PLACE. PT PLANS TO D/C TOMORROW AFTERNOON. CURRENTLY RESTING IN BED WITH EYES CLOSED.
[2019-09-29 07:10] VITALS: BP 127/82
--- NOTE | 2019-09-29 10:42 | NUR ---
ON-GOING ASSESSMENT: CM REVIEWED CHART. CM NOTIFIED HISTOLOGIST TECHNOLOGIST OF THERAPIES TO PLEASE HAVE PATIENT SEEN BY PT/OT THIS AM WE WILL NEED INSURANCE AUTH FOR SNF. CM FAXED OT EVAL WELL NEGATIVE COVID TEST TO [facility] AND STILL AWAITING PT EVAL AT THIS TIME. CM REQUESTED [facility] START INSURANCE AUTH PROCESS. CM WILL CONTINUE TO FOLLOW TO ASSIST NEEDED.
[2019-09-29] MEDS ORDERED: ARIMIDEX1 MG PO (11:02)
--- NOTE | 2019-09-29 11:54 | NUR ---
ON-GOING ASSESSMENT: CM FAXED UPDATED THERAPIES TO [facility] AND NOTIFIED THEM TO START SEEKING INSURANCE AUTH FOR SNF. PENDING INSURANCE AUTH PATIENT IS POSSIBLE DISCHARGE TO SNF OVER THE WEEKEND. IF INSURANCE AUTH IS OBTAINED [facility] WILL CONTACT THE NURSING UNIT. AWAITING INSURANCE AUTH AT THIS FOR SNF. IF AUTH IS OBTAINED OVER THE WEEKEND, DISCHARGE ORDERS/SUMMARY WILL NEEP TO BE FAXED TO FACILITY AND REPORT CALLED. CHART COPY WILL NEED TO BE SENT WITH PATIENT. CM UPDATED PATIENTS . PT STATES SHE WILL UPDATE HER SON. [facility]:[phone] FAX:[phone] NEVILLE SAHA AT [place]: [phone]
--- NOTE | 2019-09-29 14:47 | NUR ---
Assumed care of pt. at 0700. Pt. complains of pain and requests pain meds. She is curious if discharge is happening today. She is anxious at the idea of staying the entire weekend. Fall precautions in place.
[2019-09-29 15:56] VITALS: BP 105/65
[2019-09-29 19:59] VITALS: BP 112/62
--- NOTE | 2019-09-30 05:33 | NUR ---
APPRECIATES PAIN MED, WISHES SHE COULD HAVE IT MORE OFTEN THAN EVERY 6 HOURS. USING EXTERNAL CATHETER BY REQUEST AT 2300 IN ORDER TO AVOID A TRIP UP TO THE BSC OVERNIGHT. WEARING CORSET STYLE BRACE FOR BACK SUPPORT, MENTIONS TITANIUM KNEE AND PREFERS TO HAVE PILLOW BETWEEN KNEES AND BED FLAT.
[2019-09-30 07:30] VITALS: BP 122/69
--- NOTE | 2019-09-30 18:32 | NUR ---
PT ASSESSED AT START OF SHIFT. PT MOVING MUCH BETTER-WALKING W/ WALKER IN THE ROOM AND SAT UP IN THE CHAIR FOR SEVERAL HOURS. PAIM MED CHANGED TO Q4HRS. EATING AND DRINKING WELL. NO BM THIS SHIFT. USING BSC.
[2019-09-30 20:40] VITALS: BP 129/64
--- NOTE | 2019-10-01 03:54 | NUR ---
RECEIVED CARE OF THIS PATIENT AT 1900. PATIENT ALERT AND ORIENTED X4. UP TO BSC WITH ASSIST OF ONE. C/O PAIN, MED GIVEN. HAS EXTERNAL FEMALE CATH. VERY NEEDY. WHEN IN ROOM SHE NEEDS THIS AND THAT DONE FOR HER:IE: FIX CATH, FIX COVERS, TURN FROM SIDE TO SIDE. SLEPT OFF AND ON DURING NIGHT. .
--- NOTE | 2019-10-01 07:18 | NUR ---
PATIENT HAVING PAIN EVERYWHERE, MED GIVEN. PATIENT C/O FEELING LIKE HER BLADDER IS FULL. BLADDER SCANNED HER AND SHOWED 350. SHORTLY AFTER SCAN SHE DID VOID.
[2019-10-01 07:35] VITALS: BP 155/89
[2019-10-01 16:40] VITALS: BP 123/76
--- NOTE | 2019-10-01 17:18 | NUR ---
PT ASSESSED AT START OF SHIFT. PAIN BETTER CONTROLLED. WANTING AND ABLE TO WALK MORE EACH DAY. PLAN FOR REHAB AFTER AUTH RECEIVED.
[2019-10-01 19:30] VITALS: BP 117/82
--- NOTE | 2019-10-02 05:01 | NUR ---
RECIEVED CARE OF THIS PATIENT AT 1900. PATIENT ALERT AND ORIENTED X4. UP TO BSC WITH ASSIST OF ONE.HAS TENS UNIT ON BACK FOR PAIN. C/O PAIN AND PO MED GIVEN. PENDING DISCHARGE TO [facility] TODAY. SLEPT OFF AND ON DURING NIGHT.
[2019-10-02 10:25] VITALS: BP 151/82
--- NOTE | 2019-10-02 11:45 | NUR ---
ON-GOING ASSESSMENT: JENNIE SPOKE WITH LIASON FROM [facility] WHO STATES THEY STILL HAVE NOT HEARD FROM INSURANCE AND WAITING ON AUTH. THEY ARE REQUESTING UPDATED THERAPY AND PROGRESS NOTES. CM NOTIFIED [employer] DEPARTMENT OF PT/OT TO PLEASE HAVE PATIENT SEEM [facility] FOR INSURANCE AUTH PURPOSES. CM WILL FAX ONCE EVALS ARE IN. CM WILL CONTINUE TO FOLLOW.
[2019-10-02 18:17] VITALS: BP 126/80
[2019-10-02 20:37] VITALS: BP 137/86
--- NOTE | 2019-10-03 03:21 | NUR ---
RECIEVED CARE OF THIS PATIENT AT 1900. UP TO BS WITH ASSIST OF 1. NEEDS EXTRA TIME WHEN IN ROOM. C/O PAIN IN LEG, PO MED GIVEN WITH NO RELIEF, IV MED GIVEN. HAS TENS UNITON BACK. PENDING DISCHARGE TOMORROW. SLEPT OFF AND ON DURING NIGHT.
[2019-10-03 07:30] VITALS: BP 140/90
--- NOTE | 2019-10-03 11:37 | NUR ---
ON-GOING ASSESSMENT: JENNIE REACHED OUT TO LIASON AT [facility] WHO REPORTS THEY ARE STILL AWAITING INSURANCE AUTH AT THIS TIME. CM FAXED TODAYS OT EVAL TO [facility] SO THEY HAVE MOST CURRENT INFORMATION. CM NOTIFIED PATIENT AND HER THAT [place] IS STILL AWAITING A DECISION FROM INSURANCE AT THIS TIME. CM WILL CONTINUE TO FOLLOW.
--- NOTE | 2019-10-03 14:03 | NUR ---
PT IS AOX4, VSS, REPORTS PAIN 10/10 IN LOWER BACK AND GENERALIZED. PT RECEIVED ORAL ANALGESICS, NO S/S OF DISTRESS. PT CALLS APPROPRIATELY. FALL PRECAUTIONS IN PLACE. WILL CONTINUE TO MONITOR FOR SAFETY.
[2019-10-03 15:30] VITALS: BP 143/91
[2019-10-03 20:12] VITALS: BP 126/88
--- NOTE | 2019-10-03 22:33 | NUR ---
Care of patient assumed at 191. Patient asks for pain medication as sson as this nurse enters the room. Med record reviewed and patient is informed that medication cannot be given until 1999. Patient revieves Percocet along with her HS meds at 2014 for right leg pain rated 6/10. Patient sits in recliner watching TV and laughing for the next two hours. At 2219 patient is requesting pain medication again, saying that the Percocet didn't work at all. Patient is informed that it has only been 2hrs and the pain med is not available again until 214. Patient utilizes call light 4 times in the next 20 minutes asking for something different each time. At 2234 patient requests Trazodone for sleep.
[2019-10-04 11:24] VITALS: BP 164/84
[2019-10-04] MEDS ORDERED: ACETAMINOPHEN325 M1 PO (15:18)
[2019-10-04] MEDS ORDERED: PERCOCET PO (15:18)
--- NOTE | 2019-10-04 15:35 | NUR ---
ON-GOING ASSESSMENT: CM REVIEWED CHART. JENNIE RECEIVED A VM FROM [facility] STATING PATIENT IS APPROVED FOR ALF AT [place]. CM NOTIFIED LIASON AT [place] TO CALL JUANITA AT [facility] [phone] APPROVAL #[id number]. JENNIE SPOKE WITH RANJIT WHO STATES THEY VERIFIED APPROVAL AND CAN ACCEPT PATIENT TODAY. CM NOTIFIED PATIENT WHO REPORTS SHE WILL TELR HER AND FAMILY. CHART COPY WAS ORDERED AND JENNIE NOTIFIED [employer] TEACHER. BEDSIDE RN NOTIFIED AND GIVEN THE NUMBER FOR REPORT. TRANSPORTATION IS ARRANGED FOR 530PM. CM NOTIFIED PATIENT AND BEDSIDE NURSE. CM CONFIRMED THEY RECEIVED ORDERS.
--- NOTE | 2019-10-04 18:05 | NUR ---
PT AOX4, VSS, PAIN 10/10 CONTROLLED WITH ORAL ANALGESICS. PT RECEIVED DISCHARGE INSTRUCTIONS, AND VERBALIZED UNDERSTANDING. TRANSPORTATION TOOK PT TO [facility]. PT RECEIVED MEDS SHE BOUGHT FROM HOME FROM PHARMACY.
== END 2019-10-04 17:48 | DRG 552 ==
LOC: ER 13:13 → EROBS 18:27 → 4S 18:27
PROVIDERS: Emergency Medicine; ADMIT Hospitalist; ATTEND Hospitalist
DX: M47.26 Other spondylosis with radiculopathy, lumbar region (principal); S32.15XA Type 2 fracture of sacrum, initial encounter for closed fracture; N39.0 Urinary tract infection, site not specified; I48.21 Permanent atrial fibrillation; Z96.653 Presence of artificial knee joint, bilateral; F32.9 Major depressive disorder, single episode, unspecified; E03.9 Hypothyroidism, unspecified; M62.84 Sarcopenia; M85.80 Other specified disorders of bone density and structure, unspecified site; G89.29 Other chronic pain; M54.9 Dorsalgia, unspecified; B96.89 Other specified bacterial agents as the cause of diseases classified elsewhere; M12.88 Other specific arthropathies, not elsewhere classified, other specified site; Z20.828 Contact with and (suspected) exposure to other viral communicable diseases; Z87.81 Personal history of (healed) traumatic fracture; Z90.49 Acquired absence of other specified parts of digestive tract; Z93.3 Colostomy status; Z87.891 Personal history of nicotine dependence; Z90.710 Acquired absence of both cervix and uterus; Z79.1 Long term (current) use of non-steroidal anti-inflammatories (NSAID); Z85.3 Personal history of malignant neoplasm of breast; Z79.899 Other long term (current) drug therapy; X58.XXXA Exposure to other specified factors, initial encounter; Y93.89 Activity, other specified; Y92.89 Other specified places as the place of occurrence of the external cause; Y99.8 Other external cause status
CPT/HCPCS: 10195

== ENCOUNTER → 2019-12-13 | Outpatient (CLI) | payer OTHER ==
[~2019-12-13] MED LIST changes: +ACETAMINOPHEN325 M1 PO; +ARIMIDEX1 MG PO
--- NOTE | 2019-12-14 07:34 | HPC ---
[facility] [address] [address] PAIN MANAGEMENT CONSULTATION Name: CORNELL MYERS Room #: REG [facility] M..#: [id number] Admission: 12/13/19 Attend Phys: Funmilayo Scanlon Discharge: Date of : 31 Report #: [id number] CC: Funmilayo Lopez MD DATE OF SERVICE: 12/13/2019 This is a telemedicine appointment speaking with the patient, who she consented for appointment from 10:20 to 10:40 via the telephone since she only has a landline. CHIEF COMPLAINT: Chronic low back pain, right hip and leg pain. HISTORY OF PRESENT ILLNESS: This is a pleasant 84-year-old female who I am speaking with via the telephone today for a telemedicine appointment. The patient reports that she has spent the last month and a half in several hospitals as well as rehabilitation facilities. She reports to me that it was determined that she needed a right hip surgery due to a fracture. While they were in surgery, they discovered that her right femur was broken and so therefore she did have that repaired as well. The patient states she was in [facility] 2 separate times and now is back at home. She had Dr. Maciel in [place] perform her surgery. She is currently having physical therapy at home. She does use a walker at all times. She reports today her pain score is 7-8. Most of her pain is in her lower back as well as her right leg that radiates to her knee. The patient reports to me that while she was in [place] during her first admission there, they did a lumbar epidural steroid injection because they thought her pain was coming from her back, which is a normal pain generator due to her lumbar spondylosis, but that was ineffective in helping relieve any of her pain; therefore, she did return for a second hospitalization and that is when they determined she needed surgery. Again, I have no records of any of this hospitalization since it was at [place]. This is per report from the patient. The patient is requesting refills of her medications today from Dr. Lopez for her oxycodone. Since October she has been getting medications from the [facility] and then from her surgeon, Dr. Maciel, but now she has been released and is ready to return to our pain clinic to take over her medications again that she normally fills for her Percocet, gabapentin and meloxicam. She denies any problems with constipation, though she is using [id number] stool softeners due to her limited mobility. ALLERGIES: No known drug allergies. CURRENT LIST OF MEDICATIONS: Tambocor, losartan, meloxicam, oxycodone 10/325; gabapentin 200 mg in the morning, 100 midday, 100 at night; trazodone; venlafaxine; calcium; MiraLax; levothyroxine; vitamin B12, vitamin D, and PreserVision. PQRS: 1. The patient has osteoarthritic changes in her lumbar spine as well as her knees. She denies any rheumatoid arthritis. 2. Height, weight and vital signs were deferred due to a telemedicine appointment. 3. Pain score is 7-8/10. 4. Fall risk. Denies dizziness. Does use a walker at all times. Reports no falls in the last 3 months. 5. The patient is not on any blood thinners, but does take medicines for hypertension. 6. Opioid therapy is greater than 6 weeks; therefore, an opioid signed contract is on the chart. Risk assessment is low. Functional assessment is 44/70. 7. Recreational drug use, she denies. She is a former smoker and does not drink alcohol. According to the prescription monitoring system, the patient has not filled any medications from our physicians since September. She has been utilizing the long-term [facility] medications and her surgeon. Per her report, she will no longer filling medications from them and only now received them from Dr. Lopez. REVIEW OF SYSTEMS: Due to a Telemed appointment, the patient is alert and orientated, answering all my questions appropriately. The patient reports pain in her lumbar region of her back that is radiating into her right leg to the top of her knee. She denies swelling in her leg currently. IMPRESSION: 1. Chronic low back pain. 2. Spinal stenosis with neurogenic claudication. 3. Generalized osteoarthritis in multiple joints of backs and knees. 4. Breast cancer with mastectomy and treatment. 5. Chronic medical management under terms of written opioid agreement. 6. Recent right hip and femur surgery. 7. Pubic ramus fracture at the S2 level. 8. Lumbar spondylosis. 9. Lumbar facet arthropathy. We reviewed the fact that opiate medications are being used to provide analgesia adequate to support activities of daily living, not attempting to achieve a specific pain score on the 0-10 Visual Analog Scale. The current opiate medications are providing sufficient analgesia to allow the patient to participate in activities of daily living. The patient is not exhibiting any aberrant behavior suggestive of drug diversion. The patient is not having any adverse reactions to medications. The patient is not suffering from daytime somnolence or mental acuity changes. The patient is managing opiate-induced constipation with appropriate pzzp-aji-mencqnc agents and dietary considerations. The patient was counseled on concern for caution with operating a motor vehicle while using opiate medications. PLAN: 1. We discussed treatment options with the patient today. The patient reports multiple hospitalizations since our last visit with her in August, most recently requiring hip surgery and right femur stabilization. The patient is at home obtaining home physical therapy and occupational therapy. She is hopeful that she will be able to come to a visit in 2 months for pain management follow up. In the meantime, we are doing a telemedicine appointment for her. She has been getting her medications from the surgeon and the rehab facility. I explained to her that now since Dr. Lopez has restarted her oxycodone 10 she is to only get medications from him, no longer from her surgeon; the patient verbalizes understanding. Today, we will have Dr. Lopez send her medications for #100 to her pharmacy for today and 4-week supply. 2. We will refill her gabapentin. The patient takes 200 mg in the morning, 100 midday and 100 mg at bedtime, quantity 120 sent with 2 additional refills. 3. We did discuss her meloxicam. The patient had been taking a half a tablet twice a day. I encouraged her to ask her surgeon if she is to restart this medication. She does have an appointment with Dr. Maciel on Wednesday. If she is cleared to take that medication, then we will authorize a refill of that medication. The patient is instructed to call our office after her appointment. 4. The patient is seen today in collaboration with Dr. Lopez. She will follow up with us in 2 months. <ELECTRONICALLY SIGNED> By: Funmilayo Scanlon 12/14/19 0734 [id number] Funmilayo Scanlon /nt
== END ==
LOC: PAIN 10-18 08:21 → TELEPC 06:51 → PAIN 08:18 → TELEPC 08:20
PROVIDERS: ATTEND Clinical Nurse Specialist Adult Health
DX: M47.816 Spondylosis without myelopathy or radiculopathy, lumbar region (principal); S32.509D Unspecified fracture of unspecified pubis, subsequent encounter for fracture with routine healing; M25.551 Pain in right hip; G89.29 Other chronic pain; M48.061 Spinal stenosis, lumbar region without neurogenic claudication; M19.90 Unspecified osteoarthritis, unspecified site; M17.0 Bilateral primary osteoarthritis of knee; C50.919 Malignant neoplasm of unspecified site of unspecified female breast; Z79.899 Other long term (current) drug therapy; X58.XXXD Exposure to other specified factors, subsequent encounter

== ENCOUNTER → 2020-06-26 | Outpatient (CLI) | payer OTHER ==
[~2020-06-26] VITALS: Ht 160 cm; Wt 56.7 kg
[~2020-06-26] MED LIST changes: +NEURONTIN300 MG PO
[2020-06-26 09:55] VITALS: BP 136/83
--- NOTE | 2020-06-26 09:59 | NUR ---
Pain Clinic Assessment: 1. History of Osteoarthritis: SPINE KNEES History of Rheumatoid Arthritis: DENIES 2. Height: 5 ft. 3 in. 160.0 cm. Weight: 125.0 lb. oz. 56.700 kg. Patient's BMI: 22.1 3. Vital Signs: BP: 136/83 Pulse: 72 Resp: 16 Temp: 02 Sat: 95 ECG Mon: 4. Pain Intensity: 5 5. Fall Risk: Dizziness: N Needs help standing or walking: Y Fallen in the last 3 months: N Fall risk comments: WALKER 6. Patient on Blood Thinner: None 7. History of Hypertension: N 8. Opioid Therapy greater than 6 weeks: Y Opiate Contract Signed: 08/03/18 9. Risk Assessment Tool Provided: DR HERNANDEZ 10. Functional Assessment Tool: 44 11. Recreational Drug Use: Never Drug Type: Tobacco Use: Former Smoker Tobacco Type: Amount or Packs/day: How Many Years: Alcohol Use: No Frequency: Quant:
--- NOTE | 2020-06-27 07:36 | HPC ---
[facility] [address] [place] [address] PAIN MANAGEMENT CONSULTATION Name: CORNELL MYERS Room #: REG [facility]..#: [id number] Admission: 06/26/20 Attend Phys: Funmilayo Scanlon Discharge: Date of : 31 Report #: [id number] THIS REPORT FOR: cc: Iban Gutierrez MD, Christopher B. MD Hocker, Amanda CNS ~ DOC #: [id number] cc: Alton Lopez MD DATE OF SERVICE: 06/26/2020 CHIEF COMPLAINT: Chronic low back pain, right hip and leg pain. HISTORY OF PRESENT ILLNESS: This is a very pleasant 85-year-old female who returns to the pain clinic today for renewal of medication. We have not seen the patient for quite some time due to the COVID outbreak. Our last visitation with her was a Telemed appointment due to the fact she had been recently hospitalized and had right hip surgery as well as right femur surgery. Today, she reports she continues to do physical therapy several times a week and utilizes a walker. She states she is still not driving due to increasing pain and mobility in that right leg, but believes she is making progress. She reports her pain is mostly located in her low back, but she does experience some pain in that right hip area as well. It is worse with sitting, bending and rating her pain score today at 5/10. She feels the medication that now Dr. Gutierrez is providing her is beneficial as well as her gabapentin and meloxicam. Today, she is here for renewal of her meloxicam only. The patient does report having both COVID vaccines since we have seen her last. ALLERGIES: No known drug allergies. CURRENT LIST OF MEDICATIONS: Gabapentin 300 mg b.i.d., oxycodone 10/325 p.r.n., meloxicam 15 mg daily, calcium with vitamin D, losartan, vitamin B12, PreserVision, flecainide, trazodone, MiraLax, venlafaxine, and levothyroxine. PQRS: 1. She has osteoarthritic changes in her hips and spine. Denies any rheumatoid arthritis. Height is 5 feet 3 inches, weight is 125, BMI is 22. 2. Vital signs: Blood pressure 136/83, pulse is 72, respirations 16, oxygen sat is 95%. 3. Pain score is 5/10. 4. Denies dizziness. The patient utilizes a walker at all times. She has not fallen in the last 3 months. 5. The patient is not on blood thinners or medications for hypertension. 6. Opioid therapy is greater than [address] Gutierrez is now [place] [address] PAIN MANAGEMENT CONSULTATION Name: CORNELL MYERS Room #: REG [facility] Shira.#: [id number] Admission: 06/26/20 Attend Phys: Funmilayo Scanlon Discharge: Date of : 33 Report #: [id number] 7. Functional assessment is 44/70. RECREATIONAL DRUG USE: She denies. She is a former smoker and does not drink alcohol. According to the prescription monitoring system, Dr. Gutierrez has been providing her medications for quite some time. We last provided them in November. PHYSICAL EXAMINATION: GENERAL: This is alert and orientated, well-developed, well-nourished 85-year-old female who appears her stated age, rating her pain score today at 5/10. HEENT: Normocephalic, atraumatic. Extraocular eye muscles are intact. She is wearing a mask. NECK: Without adenopathy or JVD. MUSCULOSKELETAL: She utilizes a walker and has an antalgic gait. Her lower extremity strength is diminished. She has scoliosis in her thoracic region. Pain is located in her lumbosacral region today. PLAN: 1. We discussed treatment options with the patient today since Dr. Gutierrez is currently taking over, writing her opioid medications. I explained to her that I will fill her meloxicam today 15 mg tablets #30 with 5 refills. This is a total of 6 months, after that she may ask Dr. Gutierrez to provide these medications. This will help her only see 1 physician for her medications, but she can continue to come to our office if she needs to have any interventional work provided. The patient is agreeable with that and is thankful for the help that Dr. Lopez in our clinic has provided for her. 2. There were notes in the chart that the patient was going to talk about medical marijuana. The patient did not address this at our visit. We had explained via the telephone that our office does not provide a green cards, so maybe she is looking for this elsewhere that she is currently on an opioid and we had discouraged her from using medical marijuana while she is on opioid medications. The patient will follow up as needed in our office. Time spent with the patient in consultation, reviewing clinical notes and physician reports, physical examination and correlation of findings 12 minutes. Time spent in preparation for appointment, reviewing prescription monitoring system reports, reviewing previous records and proposed treatment options and reviewing current medications 5 minutes. Time spent preparing and sending electronic prescriptions in collaboration with Dr. Mario Lopez and documentation of visit and plan of treatment [address] [address] PAIN MANAGEMENT CONSULTATION Name: LUCIACORNELL WARREN Room #: REG [facility] JonnR.#: [id number] Admission: 06/26/20 Attend Phys: Funmilayo Scanlon Discharge: Date of : 33 Report #: [id number] Total time spent 22 minutes. MILE Phillip/FRANCY <ELECTRONICALLY SIGNED> By: Funmilayo Scanlon 06/27/20 0736 [id number] Funmilayo Scanlon /nt
== END ==
LOC: PAIN 08:31
PROVIDERS: ATTEND Clinical Nurse Specialist Adult Health
DX: M54.5 Low back pain (principal); G89.29 Other chronic pain; M25.551 Pain in right hip